=== PATIENT | female | born 1960 | race Caucasian/White ===

== ENCOUNTER 2016-10-26 19:09 | Emergency (ER) | payer OTHER ==
[2016-10-26 21:32] VITALS: BP 152/74
--- NOTE | 2016-10-26 21:42 | RAD ---
Indication: LEFT second toe pain following injury. Comparison: No relevant prior exams available on the [facility] [place] [facility] for comparison. Technique: 3 views LEFT second toe Report: Normal articular alignment. Negative for fracture. Small indolent appearing calcification within the soft tissues medial to the middle phalanx. Fusiform soft tissue swelling. IMPRESSION: Soft tissue swelling without fracture or malalignment.
--- NOTE | 2016-10-26 21:58 | UC ---
Lower Extremity/Ankle HPI - HPI Summary HPI Summary: LEFT 2ND TOE PAIN AND REDNESS. FELL DOWN STAIRS 4 DAYS AGO AND TRIPPED ON CAT 2 DAYS AGO. PAIN WITH TOE MOVEMENT. - History of Current Complaint Chief Complaint: UCLowerExtremity Stated Complaint: TOE COMPLAINT Time Seen by Provider: 10/26/16 20:53 Hx Obtained From: Patient Hx Last Menstrual Period: age 25yrs Onset/Duration: Sudden Onset, Lasting Days, Still Present Severity Initially: Moderate Severity Currently: Moderate Pain Intensity: 4 Pain Scale Used: 0-10 Numeric Aggravating Factor(s): Standing, Ambulation Alleviating Factor(s): Rest Able to Bear Weight: Yes - Allergies/Home Medications Allergies/Adverse Reactions: Allergies Allergy/AdvReac Type Severity Reaction Status Date / Time IVP dye Allergy Severe Dizziness Uncoded 10/26/16 19:36 PMH/Surg Hx/FS Hx/Imm Hx Endocrine History: Hypothyroidism, Dyslipidemia Cardiovascular History: Hypertension - Surgical History Surgical History: Yes Surgery Procedure, Year, and Place: cholecystectomy, hysterectomy, ,. STENT PLACEMENT FOR KIDNEY STONES - Family History Known Family History: Positive: Hypertension - Social History Alcohol Use: None Substance Use Type: None Smoking Status (MU): Never Smoked Tobacco Review of Systems Constitutional: Negative Skin: Other - REDNESS LEFT 2ND TOE Respiratory: Negative Cardiovascular: Negative Gastrointestinal: Negative Musculoskeletal: Arthralgia, Decreased ROM All Other Systems Reviewed And Are Negative: Yes Physical Exam Triage Information Reviewed: Yes Appearance: Well-Appearing, No Pain Distress, Well-Nourished Vital Signs: Initial Vital Signs Temp 99 F 10/26/16 19:32 Pulse 78 10/26/16 19:32 Resp 16 10/26/16 19:32 BP 158/89 10/26/16 19:32 Pulse Ox 100 10/26/16 19:32 Vital Signs Reviewed: Yes Eyes: Positive: Conjunctiva Clear ENT: Positive: Hearing grossly normal Neck: Positive: Supple Respiratory: Positive: No respiratory distress, No accessory muscle use Cardiovascular: Positive: Pulses Normal Abdomen Description: Positive: Soft Musculoskeletal: Positive: ROM Limited @ - TOES LEFT FOOT, Edema @ - MILD EDEMA LEFT 2ND TOE, Other: - TTP LEFT 2ND TOE Neurological: Positive: Alert Psychological: Positive: Age Appropriate Behavior Skin: Positive: Other - ERYTHEMA LEFT 2ND TOE. Negative: rashes Diagnostics - Radiology LEFT 2ND TOE XRAY Xray Interpretation: Positive (See Comments) - SOFT TISSUE SWELLING Radiology Interpretation Completed By: Radiologist Lower Extremity Course/Dx - Differential Dx/Diagnosis Provider Diagnoses: LEFT 2ND TOE SPRAIN Discharge - Discharge Plan Condition: Stable Disposition: HOME Patient Education Materials: Sprain (ED) Referrals: Sandhya Dumont MD [Primary Care Provider] - If Needed Additional Instructions: TOE XRAY NEGATIVE FOR FRACTURE TODAY. WEAR THE SHOE AND USE CRUTCHES NEEDED FOR MOBILITY. SEEK FOLLOW-UP IF YOU ARE NOT IMPROVING EXPECTED.
== END 2016-10-26 22:16 | disposition home or self-care (01) ==
LOC: UCEAST 19:09
DX: S93.505A Unspecified sprain of left lesser toe(s), initial encounter (principal); E03.9 Hypothyroidism, unspecified; E78.5 Hyperlipidemia, unspecified; W01.0XXA Fall on same level from slipping, tripping and stumbling without subsequent striking against object, initial encounter; Y92.9 Unspecified place or not applicable
CPT/HCPCS: 99213; G0463

== ENCOUNTER 2016-12-31 12:18 | Emergency (ER) | payer OTHER ==
[2016-12-31 12:26] VITALS: BP 164/96
[2016-12-31] MEDS: DOXYcycline CAP(*) 100 MG PO ONE (12:51)
--- NOTE | 2016-12-31 13:02 | UC ---
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 RECENTLY ACQUIRED CAT FROM [facility], CAT ESCAPED AND HID UNDER ANOTHER FAMILY'S TRAILER. TRIED TO OBTAIN CAT, BUT LEASH GOT WRAPPED AROUND LEFT WRIST. CAT BIT AND SCRATCHED LEFT HAND AND WRIST. TETANUS VACCINEUPDATE THREE MONTHS AGO - History of Current Complaint Chief Complaint: UCBiteInjury Stated Complaint: CAT BITE Time Seen by Provider: 12/31/16 12:23 Hx Obtained From: Patient Hx Last Menstrual Period: age 25yrs Onset/Duration: Sudden Onset, Lasting Minutes, Still Present Type of Bite: Pet Has Animal Been Immunized?: Yes Character: Puncture, Abrasion/Laceration Aggravating Factor(s): Nothing Alleviating Factor(s): Nothing Associated Signs And Symptoms: Positive: Drainage, Swelling. Negative: Fever, Erythema Hx of Bite: Provoked by: - SIGNAL PERSON Animal Available for Observation: Yes Animal Control Notified: Yes - Risk Factors Infection/Sepsis Risk Factors: Negative - Allergies/Home Medications Allergies/Adverse Reactions: Allergies Allergy/AdvReac Type Severity Reaction Status Date / Time IVP dye Allergy Severe Dizziness Uncoded 12/31/16 12:26 PMH/Surg Hx/FS Hx/Imm Hx Previously Healthy: Yes - Surgical History Surgical History: Yes Surgery Procedure, Year, and Place: cholecystectomy, hysterectomy, ,. STENT PLACEMENT FOR KIDNEY STONES - Family History Known Family History: Positive: Hypertension - Social History Occupation: Employed Full-time Lives: With Family Alcohol Use: None Substance Use Type: None Smoking Status (MU): Never Smoked Tobacco - Immunization History Most Recent Tetanus Shot: 2017 Review of Systems Constitutional: Negative Skin: Other - CAT BITES SCRATCHES LEFT HAND AND WRIST Eyes: Negative ENT: Negative Respiratory: Negative Cardiovascular: Negative Gastrointestinal: Negative Genitourinary: Negative Motor: Negative Neurovascular: Negative Musculoskeletal: Negative Neurological: Negative Psychological: Negative All Other Systems Reviewed And Are Negative: Yes Physical Exam Triage Information Reviewed: Yes Appearance: Well-Appearing, No Pain Distress, Well-Nourished Vital Signs: Initial Vital Signs Temp 98.6 F 12/31/16 12:19 Pulse 92 12/31/16 12:19 Resp 18 12/31/16 12:19 BP 164/96 12/31/16 12:19 Pulse Ox 96 12/31/16 12:19 Vital Signs Reviewed: Yes Eye Exam: Normal Eyes: Positive: Conjunctiva Clear ENT Exam: Normal ENT: Positive: Normal ENT inspection, Hearing grossly normal, TMs normal Dental Exam: Normal Neck exam: Normal Neck: Positive: Supple, Nontender, No Lymphadenopathy Respiratory Exam: Normal Respiratory: Positive: Chest non-tender, Lungs clear, Normal breath sounds, No respiratory distress, No accessory muscle use Cardiovascular Exam: Normal Cardiovascular: Positive: RRR, No Murmur, Pulses Normal, Brisk Capillary Refill Abdominal Exam: Normal Abdomen Description: Positive: Nontender, No Organomegaly Musculoskeletal Exam: Normal Musculoskeletal: Positive: Strength Intact, ROM Intact, No Edema Neurological Exam: Normal Psychological Exam: Normal Skin: Positive: Other - CAT BITES AND SCRATCHES LEFT HAND Bite Injury Course/Dx - Differential Dx/Diagnosis Differential Diagnosis/HQI/PQRI: Joint Space Infection, Laceration, Rabies Exposure, Superficial Infection, Deep Space Infection Provider Diagnoses: CAT BITES AND SCRATCHES LEFT HAND AND WRIST Discharge - Discharge Plan Condition: Stable Disposition: HOME Prescriptions: DOXYcycline CAP(*) [DOXYcycline 100MG CAP(*)] 100 mg PO BID #20 cap Patient Education Materials: Animal Bite (ED) Referrals: Sandhya Dumont MD [Primary Care Provider] -
== END 2016-12-31 13:26 | disposition home or self-care (01) ==
LOC: UCEAST 12:18
DX: S60.572A Other superficial bite of hand of left hand, initial encounter (principal); W55.01XA Bitten by cat, initial encounter
CPT/HCPCS: 99213; A9270-GY; G0463

== ENCOUNTER 2017-03-12 18:43 | Emergency (ER) | payer OTHER ==
[2017-03-12 19:15] VITALS: BP 152/82
--- NOTE | 2017-03-12 19:39 | UC ---
Eye Complaint HPI - HPI Summary HPI Summary: Left eye irritation began today granddaughter with similar sx - History of Current Complaint Chief Complaint: UCEye Stated Complaint: EYE IRRITATION Time Seen by Provider: 03/12/17 19:37 Hx Obtained From: Patient Hx Last Menstrual Period: age 25yrs ?: No Onset/Duration: Sudden Onset Timing: Constant Severity Initially: Mild Severity Currently: Mild Location of Injury: Conjunctiva Aggravating Factor(s): Nothing Alleviating Factor(s): Nothing Associated Signs And Symptoms: Positive: Drainage (Purulent) - Allergies/Home Medications Allergies/Adverse Reactions: Allergies Allergy/AdvReac Type Severity Reaction Status Date / Time IVP dye Allergy Severe Dizziness Uncoded 03/12/17 19:15 PMH/Surg Hx/FS Hx/Imm Hx Endocrine History: Hypothyroidism, Dyslipidemia Cardiovascular History: Hypertension GI/ History: Gastroesophageal Reflux - Surgical History Surgical History: Yes Surgery Procedure, Year, and Place: cholecystectomy, hysterectomy, ,. STENT PLACEMENT FOR KIDNEY STONES - Family History Known Family History: Positive: Hypertension - Social History Occupation: Disabled Lives: With Family Alcohol Use: None Substance Use Type: None Smoking Status (MU): Never Smoked Tobacco - Immunization History Most Recent Tetanus Shot: 2017 Review of Systems Constitutional: Negative Skin: Negative Eyes: Drainage, Eye Redness ENT: Negative Respiratory: Negative Cardiovascular: Negative Gastrointestinal: Negative Genitourinary: Negative Motor: Negative Neurovascular: Negative Musculoskeletal: Negative Neurological: Negative Psychological: Negative Is Patient Immunocompromised?: No All Other Systems Reviewed And Are Negative: Yes Physical Exam Triage Information Reviewed: Yes Appearance: Well-Appearing, No Pain Distress, Obese Vital Signs: Initial Vital Signs Temp 97.7 F 03/12/17 19:13 Pulse 85 03/12/17 19:13 Resp 16 03/12/17 19:13 BP 152/82 03/12/17 19:13 Pulse Ox 99 03/12/17 19:13 Vital Signs Reviewed: Yes Eye Exam: Normal Eyes: Positive: Conjunctiva Clear - right, Conjunctiva Inflamed - left, Discharge - left ENT Exam: Normal ENT: Positive: Normal ENT inspection, Hearing grossly normal, TMs normal, Uvula midline. Negative: Nasal congestion, Nasal drainage, Trismus, Muffled voice, Hoarse voice, Dental tenderness, Sinus tenderness Dental Exam: Normal Neck exam: Normal Neck: Positive: Supple, Nontender, No Lymphadenopathy Respiratory Exam: Normal Respiratory: Positive: Chest non-tender, Lungs clear, Normal breath sounds, No respiratory distress, No accessory muscle use Cardiovascular Exam: Normal Cardiovascular: Positive: RRR, No Murmur, Pulses Normal Musculoskeletal Exam: Normal Musculoskeletal: Positive: Strength Intact, ROM Intact, No Edema Neurological Exam: Normal Neurological: Positive: Alert, Muscle Tone Normal Psychological Exam: Normal Skin Exam: Normal Eye Complaint Course/Dx - Course Course Of Treatment: warm compress, polytrim eye drops, hand hygiene follow with pcp - Differential Dx/Diagnosis Provider Diagnoses: High blood pressure in poor control, os conjuctivitis Discharge - Discharge Plan Condition: Stable Disposition: HOME Patient Education Materials: Hypertension (ED), Conjunctivitis (ED) Referrals: Sandhya Dumont MD [Primary Care Provider] - 2 Weeks
[2017-03-12] MEDS ORDERED: Polymyx/Trimethoprim OPTH* 10 ML BTL LEFT EYE ONE (19:54)
== END 2017-03-12 20:26 | disposition home or self-care (01) ==
LOC: UCEAST 18:43
DX: H10.32 Unspecified acute conjunctivitis, left eye (principal); I10 Essential (primary) hypertension; E03.9 Hypothyroidism, unspecified; E78.5 Hyperlipidemia, unspecified; K21.9 Gastro-esophageal reflux disease without esophagitis; E66.9 Obesity, unspecified; Z90.49 Acquired absence of other specified parts of digestive tract; Z90.710 Acquired absence of both cervix and uterus; Z91.041 Radiographic dye allergy status
CPT/HCPCS: 99212; G0463

== ENCOUNTER 2017-04-27 12:23 | Emergency (ER) | payer OTHER ==
[2017-04-27 12:42] VITALS: BP 174/93
[2017-04-27] MEDS ORDERED: Ketorolac INJ* 15 MG/ML 1 ML VIAL IV PUSH ONE (13:11)
[2017-04-27] MEDS ORDERED: NS 0.9% 1000 ML* 1,000 ML IV ONE (13:11)
[2017-04-27] MEDS ORDERED: Ketorolac INJ* 30 MG/ML 1 ML VIAL IV PUSH ONE (13:14)
--- NOTE | 2017-04-27 13:36 | UC ---
Abdominal Pain Female HPI - HPI Summary HPI Summary: Patient presents with a past medical history of HTN, Gerd, Hypercholesterolemia , hypothyroidism, and Kidney stones. She presents today with 2 day onset right flank pain that radiates to the right side of the abdomen. She states the pain became severe today. He cannot sit down or stop pacing due to the pain. She reports associated nausea and vomiting. She reports episodes of sweating. - History of Current Complaint Chief Complaint: UCBackPain Stated Complaint: LOWER BACK PAIN Time Seen by Provider: 04/27/17 13:08 Hx Obtained From: Patient Hx Last Menstrual Period: age 25yrs ?: No Onset/Duration: Sudden Onset, Lasting Days Timing: Constant Severity Currently: Severe Location: Discrete At: RLQ, Other - right CVA Radiates: Yes Radiates to: Flank Character: Sharp Aggravating Factor(s): Nothing Alleviating Factor(s): Nothing Associated Signs and Symptoms: Positive: Diaphoresis, Decreased Appetite, Nausea , Vomiting - Risk Factors Ectopic Risk Factor: Negative Allergies/Adverse Reactions: Allergies Allergy/AdvReac Type Severity Reaction Status Date / Time IVP dye Allergy Severe Dizziness Uncoded 04/27/17 12:41 PMH/Surg Hx/FS Hx/Imm Hx Previously Healthy: Yes Endocrine History: Hypothyroidism, Dyslipidemia Cardiovascular History: Hypertension GI/ History: Gastroesophageal Reflux - Surgical History Surgical History: Yes Surgery Procedure, Year, and Place: cholecystectomy, hysterectomy, ,. STENT PLACEMENT FOR KIDNEY STONES - Family History Known Family History: Positive: Hypertension - Social History Lives: Alone Alcohol Use: Rare Substance Use Type: None Smoking Status (MU): Never Smoked Tobacco - Immunization History Most Recent Tetanus Shot: 2017 Review of Systems Constitutional: Negative Skin: Negative Eyes: Negative ENT: Negative Respiratory: Negative Cardiovascular: Negative Gastrointestinal: Abdominal Pain Genitourinary: Negative Motor: Negative Neurovascular: Negative Musculoskeletal: Negative Neurological: Negative Psychological: Negative Is Patient Immunocompromised?: No All Other Systems Reviewed And Are Negative: Yes Physical Exam Triage Information Reviewed: Yes Appearance: Ill-Appearing, Pain Distress Vital Signs: Initial Vital Signs Temp 97.3 F 04/27/17 12:35 Pulse 88 04/27/17 12:35 Resp 17 04/27/17 12:35 BP 174/93 04/27/17 12:35 Pulse Ox 100 04/27/17 12:35 Vital Signs Reviewed: Yes Eye Exam: Normal ENT Exam: Normal Neck exam: Normal Neck: Positive: 1 Respiratory Exam: Normal Respiratory: Positive: Normal breath sounds, No respiratory distress, No accessory muscle use Cardiovascular Exam: Normal Abdomen Description: Positive: CVA Tenderness (R), Guarding Musculoskeletal Exam: Normal Neurological Exam: Normal Psychological Exam: Normal Skin Exam: Normal Abd Pain Female Course/Dx - Course Course Of Treatment: Patient presents with two day onset complaints of right sided flank pain, with history of kidney stones. She presents with severe pain, and symtpoms consistent with previous kidney stones. She had right sided CVAT, and an IV line was started and she was given tordol and [facility] was called and the patient was transported to the ED.Report was called and given to Dr. Palmer. Patient discharged via ambualnce in stable condition. - Differential Dx/Diagnosis Differential Diagnosis: Other - right flank pain Provider Diagnoses: right flank pain Discharge - Discharge Plan Condition: Stable Disposition: TRANS HIGHER LVL OF CARE FAC Patient Education Materials: Flank Pain (ED) Referrals: Sandhya Dumont MD [Primary Care Provider] -
== END 2017-04-27 13:34 | disposition short-term general hospital (02) ==
LOC: UCEAST 12:23
DX: R10.31 Right lower quadrant pain (principal); R11.2 Nausea with vomiting, unspecified; I10 Essential (primary) hypertension; Z87.442 Personal history of urinary calculi; Z91.041 Radiographic dye allergy status
CPT/HCPCS: 96361; 96374; 99213; G0463; J1885

== ENCOUNTER 2017-04-27 13:53 | Emergency (ER) | payer OTHER ==
[2017-04-27] MEDS ORDERED: Ondansetron INJ* 2 MG/ML VIAL IV ONE (14:07)
--- NOTE | 2017-04-27 15:01 | RAD ---
INDICATION: Right flank pain history of stones. COMPARISON: Comparison is made with a prior CT of the abdomen and pelvis from November 09, 2007. TECHNIQUE: A CT scan of the abdomen and pelvis was performed without intravenous or oral contrast. Contiguous axial sections were obtained from the lung bases through the symphysis pubis. Images were reconstructed in the coronal and sagittal planes. FINDINGS: There is a small infiltrate present posterior at the right lung base. No pleural effusion is present. The liver and spleen are normal in size. The liver is decreased in attenuation consistent with fatty infiltration. No significant focal abnormality seen on this noncontrast study. The patient is status post cholecystectomy. The pancreas appears to be within normal limits. There are multiple bilateral renal calculi measuring between 1 and 6 mm in size. There is mild enlargement of the right kidney and mild perinephric stranding on the right side. There is dilatation of the right renal calyces, pelvis and ureter to the level of a calculus at the ureterovesical junction measuring 4.5 mm in size. This is causing moderate hydronephrosis. The aorta is normal in caliber without significant calcific plaque. No significant enlarged retroperitoneal lymph nodes are seen. The stomach, small and large bowel appear nondistended. The appendix is within normal limits. There is moderate sigmoid diverticulosis without evidence for diverticulitis or colitis. The patient is status post hysterectomy. No free intraperitoneal air or fluid is seen. No significant focal osseous abnormality is seen. IMPRESSION: 1. THERE IS A 4.5 MM CALCULUS AT THE RIGHT URETEROVESICAL JUNCTION CAUSING MODERATE HYDRONEPHROSIS. 2. THERE ARE MULTIPLE SMALL ADDITIONAL BILATERAL RENAL CALCULI. 3. HEPATIC STEATOSIS. 4. STATUS POST CHOLECYSTECTOMY AND HYSTERECTOMY.
[2017-04-27 15:14] LABS: ABS Basophils 0.1 10^3/ul (0-0.2); ABS Eosinophils 0 10^3/ul (0-0.6); ABS Lymphocytes 1.2 10^3/ul (1.0-4.8); ABS Monocytes 0.3 10^3/ul (0-0.8); ABS Nucleated RBC 0 10^3/ul; Eosinophil % 0.1 % (0-6); Hematocrit 38 % (35-47); Lymphocyte % 11.2 % (25-47); Mean Corpuscular HGB Conc 34 g/dl (31-36); Mean Corpuscular Hemoglobin 30 pg (27-31); Mean Corpuscular Volume 89 fL (80-97); Mean Platelet Volume 7 um3 (7.4-10.4); Nucleated Red Blood Cells % 0; Platelet Count 148 10^3/ul (150-450); Red Cell Distribution Width 13 % (10.5-15); White Blood Count 10.6 10^3/ul (3.5-10.8)
[2017-04-27 15:28] LABS: EGFR Non-African American 62.1 (>60)
[2017-04-27] MEDS ORDERED: Tamsulosin CAP* 0.4 MG PO ONE (15:30)
[2017-04-27] MEDS ORDERED: Ketorolac INJ* 30 MG/ML 1 ML VIAL IV PUSH ONE (15:34)
[2017-04-27 15:58] VITALS: BP 125/62
--- NOTE | 2017-04-27 21:34 | ED ---
Roly Atkinson Gabriel, scribed for Mikael Rodriguez MD on 04/27/17 at 1405 . Back Pain - HPI Summary HPI Summary: This patient is a 57 year old F presenting to [facility] after being seen at with a chief complaint of possible kidney stone since 04/25/17. Symptoms alleviated by pacing. Patient was given toradol at which has alleviated her pain. Patient reports nausea, vomiting, back and flank pain. Patient denies hematuria , dysuria, fever, and ABD pain. Pt has a history of kidney stones and states the symptoms feel similar to previous ones. The pain has gotten severe today. She states she has no history of poor kidney function. - History of Current Complaint Stated Complaint: RIGHT FLANK PAIN FROM CC Time Seen by Provider: 04/27/17 14:04 Hx Obtained From: Patient Hx Last Menstrual Period: age 25yrs Onset/Duration: Sudden Onset, Lasting Days - 2, Still Present Onset/Duration: Still Present Timing: Constant Back Pain Location: Is Diffuse - into flank Severity Initially: Moderate Severity Currently: Mild Character: Sharp Alleviating Symptom(s): Other - pacing, medication Associated Signs And Symptoms: Positive: Negative - hematuria, dysuria, fever, and ABD pain, Flank Pain, Other - nausea, vomiting, back and flank pain. Negative: Abdominal Pain - Allergies/Home Medications Allergies/Adverse Reactions: Allergies Allergy/AdvReac Type Severity Reaction Status Date / Time IVP dye Allergy Severe Dizziness Uncoded 04/27/17 12:41 PMH/Surg Hx/FS Hx/Imm Hx Endocrine/Hematology History: Reports: Hx Thyroid Disease Cardiovascular History: Reports: Hx Hypercholesterolemia, Hx Hypertension Respiratory History: Denies: Hx Asthma, Hx Chronic Obstructive Pulmonary Disease (COPD) GI History: Reports: Hx Gastroesophageal Reflux Disease Denies: Hx Ulcer History: Reports: Hx Kidney Stones - since 18 y/o - Surgical History Surgery Procedure, Year, and Place: cholecystectomy, hysterectomy, ,. STENT PLACEMENT FOR KIDNEY STONES Infectious Disease History: Denies: Hx Clostridium Difficile, Hx Hepatitis, Hx Human Immunodeficiency Virus (HIV), Hx of Known/Suspected MRSA, Hx Shingles, Hx Tuberculosis, Hx Known/ Suspected VRE, Hx Known/Suspected VRSA, History Other Infectious Disease - Family History Known Family History: Positive: Hypertension - Social History Alcohol Use: Rare Hx Substance Use: No Substance Use Type: Reports: None Hx Tobacco Use: No Smoking Status (MU): Never Smoked Tobacco Review of Systems Negative: Fever Positive: Vomiting, Nausea. Negative: Abdominal Pain Negative: dysuria, hematuria Positive: Other - back and flank pain All Other Systems Reviewed And Are Negative: Yes Physical Exam - Summary Physical Exam Summary: Appearance: Obese, no pain distress Skin: warm, dry, reflects adequate perfusion Head/face: normal Eyes: EOMI, SHABNAM ENT: normal Neck: supple, non-tender Respiratory: CTA, breath sounds present Cardiovascular: RRR, pulses symmetrical Abdomen: non-tender, soft Bowel: present Musculoskeletal: normal, strength/ROM intact Neuro: normal, sensory motor intact, A&Ox3 Triage Information Reviewed: Yes Vital Signs On Initial Exam: Initial Vitals BP 108/59 04/27/17 14:16 Completion Of Physical Exam Limited Due To: Dementia Diagnostics - Vital Signs Vital Signs Temp Pulse Resp BP Pulse Ox 04/27/17 15:58 36.6 C 108 18 125/62 99 04/27/17 15:44 83 125/62 99 04/27/17 15:30 84 123/62 99 04/27/17 15:00 79 120/66 99 04/27/17 14:56 137/63 04/27/17 14:41 78 97 04/27/17 14:30 76 108/64 95 04/27/17 14:17 81 99 04/27/17 14:16 108/59 - Laboratory Lab Results: Lab Results 04/27/17 04/27/17 Range/Units 15:04 15:04 WBC 10.6 (3.5-10.8) 10^3/ul RBC 4.30 (4.0-5.4) 10^6/ul Hgb 13.0 (12.0-16.0) g/dl Hct 38 (35-47) % MCV 89 (80-97) fL MCH 30 (27-31) pg MCHC 34 (31-36) g/dl RDW 13 (10.5-15) % Plt Count 148 L (150-450) 10^3/ul MPV 7 L (7.4-10.4) um3 Neut % (Auto) 85.0 H (38-83) % Lymph % (Auto) 11.2 L (25-47) % [place] % (Auto) 3.1 (1-9) % Eos % (Auto) 0.1 (0-6) % Baso % (Auto) 0.6 (0-2) % Absolute Neuts (auto) 9.0 H (1.5-7.7) 10^3/ul Absolute Lymphs (auto) 1.2 (1.0-4.8) 10^3/ul Absolute Monos (auto) 0.3 (0-0.8) 10^3/ul Absolute Eos (auto) 0 (0-0.6) 10^3/ul Absolute Basos (auto) 0.1 (0-0.2) 10^3/ul Absolute Nucleated RBC 0 10^3/ul Nucleated RBC % 0 Sodium 138 (133-145) mmol/L Potassium 3.8 (3.5-5.0) mmol/L Chloride 105 (101-111) mmol/L Carbon Dioxide 25 (22-32) mmol/L Anion Gap 8 (2-11) mmol/L BUN 18 (6-24) mg/dL Creatinine 0.93 (0.51-0.95) mg/dL Est GFR ( Amer) 79.9 (>60) Est GFR (Non-Af Amer) 62.1 (>60) BUN/Creatinine Ratio 19.4 (8-20) Glucose 115 H (70-100) mg/dL Calcium 9.5 (8.6-10.3) mg/dL Result Diagrams: 04/27/17 15:04 04/27/17 15:04 Lab Statement: Any lab studies that have been ordered have been reviewed, and results considered in the medical decision making process. - CT CT ABD/Pelvis CT Interpretation Completed By: Radiologist - 1. THERE IS A 4.5 MM CALCULUS AT THE RIGHT URETEROVESICAL JUNCTION CAUSING MODERATE HYDRONEPHROSIS. 2. THERE ARE MULTIPLE SMALL ADDITIONAL BILATERAL RENAL CALCULI. 3. HEPATIC STEATOSIS. 4. STATUS POST CHOLECYSTECTOMY AND HYSTERECTOMY. ED physician has reviewed this radiology report. Re-Evaluation - Re-Evaluation First Eval Change: Improved Back Pain Course/Dx - Course Course Of Treatment: pt with hx of mult stones. >5mm distal stone. Start flomax. Tx here with relief. To f/u with urology. NSAID plus flomax. D/C in good condition. - Diagnoses Provider Diagnoses: Renal colic on right side, Calcium ureterolithiasis Discharge - Discharge Plan Condition: Improved Disposition: HOME Prescriptions: Naproxen [Naproxen 500 mg] 500 mg PO BID PRN #10 tab PRN Reason: Pain Ondansetron [Zofran Odt] 4 mg PO TID PRN #10 tab PRN Reason: Nausea Tamsulosin CAP* [Flomax CAP*] 0.4 mg PO DAILY #7 cap Referrals: Sandhya Dumont MD [Primary Care Provider] - Lawson Posey MD [Medical Doctor] - Additional Instructions: Drink lots of fluids. Adhere strictly to the CALCIUM OXYLATE diet. Return with uncontrolled pain, vomiting, fever, worse or other concerns as discussed. The documentation as recorded by the Roly yepez Gabriel accurately reflects the service I personally performed and the decisions made by , Mikael Rodriguez MD.
== END 2017-04-27 15:58 | disposition home or self-care (01) ==
LOC: ED 13:53
DX: N13.2 Hydronephrosis with renal and ureteral calculous obstruction (principal); N28.89 Other specified disorders of kidney and ureter; Z91.041 Radiographic dye allergy status; Z90.49 Acquired absence of other specified parts of digestive tract
CPT/HCPCS: 36415; 74176; 80048; 85025; 96374; 96375; 99283; J1885

== ENCOUNTER 2017-06-13 11:17 | Emergency (ER) | payer OTHER ==
[2017-06-13 12:36] VITALS: BP 146/80
--- NOTE | 2017-06-13 12:51 | UC ---
FLU HPI - HPI Summary HPI Summary: Pt presents with sore throat and fever for 4 days. Starting yesterday she developed a dry cough. She vomited once yesterday. She tells me that she has been exposed to the flu. Denies SOB, chest pain, abdominal pain, diarrhea. - History of Current Complaint Chief Complaint: UCRespiratory Stated Complaint: SORE THROAT,BODYACHES Time Seen by Provider: 06/13/17 12:50 Hx Obtained From: Patient Hx Last Menstrual Period: hysterectomy Pain Intensity: 0 - Allergy/Home Medications Allergies/Adverse Reactions: Allergies Allergy/AdvReac Type Severity Reaction Status Date / Time IVP dye Allergy Severe Dizziness Uncoded 04/27/17 12:41 PMH/Surg Hx/FS Hx/Imm Hx Endocrine History: Thyroid Disease, Dyslipidemia Cardiovascular History: Hypertension - Surgical History Surgical History: None Surgery Procedure, Year, and Place: cholecystectomy, hysterectomy, ,. STENT PLACEMENT FOR KIDNEY STONES - Family History Known Family History: Positive: Hypertension - Social History Occupation: Employed Full-time Lives: With Family Alcohol Use: Rare Substance Use Type: None Smoking Status (MU): Never Smoked Tobacco - Immunization History Most Recent Tetanus Shot: 2017 Review of Systems Constitutional: Fever, Fatigue, Other - Body aches Skin: Negative Eyes: Negative ENT: Sore Throat Respiratory: Cough Cardiovascular: Negative Gastrointestinal: Nausea Musculoskeletal: Negative Neurological: Negative Psychological: Negative All Other Systems Reviewed And Are Negative: Yes Physical Exam Triage Information Reviewed: Yes Appearance: No Pain Distress, Well-Nourished, Ill-Appearing Vital Signs: Initial Vital Signs Temp 98.9 F 06/13/17 12:30 Pulse 97 06/13/17 12:30 Resp 18 06/13/17 12:30 BP 146/80 06/13/17 12:30 Pulse Ox 97 06/13/17 12:30 Vital Signs Reviewed: Yes Eyes: Positive: Conjunctiva Clear. Negative: Conjunctiva Inflamed, Discharge ENT: Positive: Hearing grossly normal, Pharynx normal, TMs normal, Uvula midline. Negative: Pharyngeal erythema, Nasal congestion, Nasal drainage, TM bulging, TM dull, TM red, Tonsillar swelling, Tonsillar exudate, Hoarse voice, Sinus tenderness Neck: Positive: Supple, Nontender, No Lymphadenopathy Respiratory: Positive: Lungs clear, Normal breath sounds, No respiratory distress, No accessory muscle use Cardiovascular: Positive: RRR, No Murmur, Pulses Normal Abdomen Description: Positive: Nontender, No Organomegaly, Soft. Negative: CVA Tenderness (R), CVA Tenderness (L), Distended, Guarding, McBurney's Point Tenderness Bowel Sounds: Positive: Present Neurological: Positive: Fatigued Psychological: Positive: Age Appropriate Behavior Skin: Negative: rashes Flu Course/Dx - Course Course Of Treatment: POC flu B positive - Differential Dx/Diagnosis Provider Diagnoses: Influenza B Discharge - Discharge Plan Condition: Stable Disposition: HOME Prescriptions: Benzonatate CAP* [Tessalon 100 MG CAP*] 100 mg PO TID PRN #15 cap PRN Reason: Cough Ibuprofen TAB* [Motrin TAB* 400 MG] 400 mg PO Q6H PRN #20 tab PRN Reason: Pain Ondansetron ODT TAB* [Zofran 4 MG Odt TAB*] 4 mg PO Q8H PRN #10 tab.odt PRN Reason: Nausea Oseltamivir CAP* [Tamiflu CAP*] 75 mg PO BID #10 cap Patient Education Materials: Influenza (ED) Referrals: Sandhya Dumont MD [Primary Care Provider] - Additional Instructions: If you develop a fever, shortness of breath, chest pain, new or worsening symptoms - please call your PCP or go to the ED. Your blood pressure was high at todays visit. Please see your primary provider within 4 weeks for recheck and re-evaluation.
[2017-06-13] MEDS ORDERED: Ondansetron ODT TAB* 4 MG PO ONE (13:34)
== END 2017-06-13 13:42 | disposition home or self-care (01) ==
LOC: UCEAST 11:17
DX: J10.1 Influenza due to other identified influenza virus with other respiratory manifestations (principal); E07.9 Disorder of thyroid, unspecified; E78.5 Hyperlipidemia, unspecified; I10 Essential (primary) hypertension; Z91.041 Radiographic dye allergy status
CPT/HCPCS: 87502; 99212; A9270-GY; G0463

== ENCOUNTER 2017-11-08 19:45 | Emergency (ER) | payer OTHER ==
[2017-11-08 20:14] VITALS: BP 147/83
--- NOTE | 2017-11-08 20:45 | UC ---
UC General HPI - History of Current Complaint Chief Complaint: UCRespiratory Stated Complaint: SORE THROAT Time Seen by Provider: 11/08/17 20:32 Hx Last Menstrual Period: hysterectomy Onset/Duration: Lasting Days Timing: Intermittent Episodes Lasting: - few hours Onset Severity: Mild Current Severity: None Pain Intensity: 3 - Allergy/Home Medications Allergies/Adverse Reactions: Allergies Allergy/AdvReac Type Severity Reaction Status Date / Time IVP dye Allergy Severe Dizziness Uncoded 11/08/17 20:14 Home Medications: Home Medications Fluticasone NASAL SPRAY 50MCG* [Flonase NASAL SPRAY 50MCG*] 1 spray DAILY PRN [History Confirmed 11/08/17] Metoprolol Tartrate TAB* [Lopressor TAB*] 200 mg BEDTIME 11/08/17 [History Confirmed 11/08/17] Omeprazole CAP* [Prilosec CAP* 20 MG] 1 tab DAILY 11/08/17 [History Confirmed ] PMH/Surg Hx/FS Hx/Imm Hx Previously Healthy: Yes Endocrine History: Thyroid Disease Cardiovascular History: Hypertension GI/ History: Kidney Stones - Surgical History Surgical History: Yes Surgery Procedure, Year, and Place: cholecystectomy, hysterectomy, ,. STENT PLACEMENT FOR KIDNEY STONES - Family History Known Family History: Positive: Hypertension - Social History Alcohol Use: Occasionally Substance Use Type: None Smoking Status (MU): Never Smoked Tobacco - Immunization History Most Recent Tetanus Shot: 2017 Review of Systems Constitutional: Negative Skin: Negative Eyes: Negative ENT: Negative Respiratory: Negative Cardiovascular: Negative Gastrointestinal: Negative Genitourinary: Negative Motor: Negative Neurovascular: Negative Musculoskeletal: Negative Neurological: Negative Psychological: Negative All Other Systems Reviewed And Are Negative: Yes Physical Exam Triage Information Reviewed: Yes Appearance: Well-Appearing Vital Signs: Initial Vital Signs Temp 37.1 C 11/08/17 20:11 Pulse 75 11/08/17 20:11 Resp 16 11/08/17 20:11 BP 147/83 11/08/17 20:11 Pulse Ox 100 11/08/17 20:11 Vital Signs Reviewed: Yes Eye Exam: Normal Eyes: Positive: Conjunctiva Clear ENT Exam: Normal ENT: Positive: Normal ENT inspection, Pharynx normal Dental Exam: Normal Neck exam: Normal Neck: Positive: Supple, No Lymphadenopathy Respiratory: Positive: Chest non-tender Cardiovascular Exam: Normal Cardiovascular: Positive: RRR Abdominal Exam: Normal Musculoskeletal Exam: Normal Course/Dx - Course Course Of Treatment: exam normal - Differential Dx - Multi-Symptom Provider Diagnoses: tonsilith now resolved Discharge - Sign-Out/Discharge Documenting (check all that apply): Patient Departure - Discharge Plan Condition: Good Disposition: HOME Referrals: Sandhya Dumont MD [Primary Care Provider] - - Billing Disposition and Condition Condition: GOOD Disposition: Home
== END 2017-11-08 21:00 | disposition home or self-care (01) ==
LOC: UCCORT 19:45
DX: J35.8 Other chronic diseases of tonsils and adenoids (principal); E07.9 Disorder of thyroid, unspecified; I10 Essential (primary) hypertension; Z87.442 Personal history of urinary calculi; Z91.041 Radiographic dye allergy status; Z82.49 Family history of ischemic heart disease and other diseases of the circulatory system
CPT/HCPCS: 99211; G0463

== ENCOUNTER 2017-12-29 20:13 | Emergency (ER) | payer OTHER ==
--- OUTSIDE RECORDS SUMMARY | 2017-12-29 20:21 | XMS REPORT ---
:1960 External Reference #:[id number] Author Organization [facility] Address [address] [place] [address] Phone [phone] Care Team Providers Name Role Phone Sandhya Dumont M.D. Care Team Information Street Openings Inspector Unavailable Sandhya Dumont M.D. Primary Care Physician Unavailable Payers Type Date Identification Numbers Payment Provider Subscriber Medicaid Effective: Policy Number: [id number] [facility] 2014 PayID: [id number] [address] [address] [place] [address] Problems Date Description Provider Status Onset: 04/02/2014 Hypothyroidism Sandhya Dumont M.D. Active Onset: 04/02/2014 Hyperlipidemia Sandhya Dumont M.D. Active Onset: 04/02/2014 Benign essential hypertension Sandhya Dumont M.D. Active Onset: 04/02/2014 Gastroesophageal reflux disease Sandhya Dumont M.D. Active Onset: 04/02/2014 Asthma without status asthmaticus Sandhya Dumont M.D. Active Onset: 03/25/2015 Impaired fasting glycaemia Sandhya Dumont M.D. Active Onset: 03/25/2015 Kidney stone Sandhya Dumont M.D. Active Family History Date Family Member(s) Problem(s) Comments Father due to Surgery () Mother Diabetes Mellitus, II Mother due to Congestive Heart Failure () - 81 Mother Hypertension First Son due to Asthma () Social History Type Date Description Comments Cigarette Use Never Smoked Cigarettes ETOH Use Rare Smoking Patient has never smoked Allergies, Adverse Reactions, Alerts Date Description Reaction Status Severity Comments 04/02/2014 IVP Dye Nausea and Vomiting active Severe 05/02/2017 Tamsulosin DIZZY, SOB active 05/14/2014 NKDA inactive Medications Medication Date Status Form Strength Qnty SIG Indications Ordering Provider Cyclobenzaprine 12/27 Active Tablets 5mg 45tab 1-2 by M54.2 Holly Capellan HCL s mouth 3 Cash, times per HOUSING DEVELOPMENT SPECIALIST day as needed for muscle spasm Physical Therapy 12/27 Active please M54.2 Holly C. /2017 diagnose Cash, and treat HOUSING DEVELOPMENT SPECIALIST for neck and upper back pain Claritin 10/05 Active Tablets 10mg 90tab 1 by J30.9 Lorraine s mouth Liv, every day [employer] Metoprolol 06/30 Active Tablets ER 200mg 90tab 1 by J06.9 Mouna Elizabeth Succinate ER /2017 24HR s mouth Beto, HOUSING DEVELOPMENT SPECIALIST daily Hydrocortisone 06/30 Active Cream 1% 28.40 apply Lorraine Plus 0gm sparingly Liv, to [employer] affected areas of skin Freestyle Lite 10/01 Active Device 1unit test 3 Lorraine Blood Glucose s times a Liv, Monitoring day or as [employer] System directed dx:r73.09 Freestyle Lite 10/01 Active Strips 100un test 3 Lorraine Test /2015 its times a Liv, day or as [employer] directed dx:r73.09 Freestyle 10/01 Active Misc 100un test 3 Lorraine Lancets /2015 its times a Liv, day or as [employer] directed dx:r73.09 Aerochamber Plus 11/06 Active Misc 1unit Use with s inhaler ALINA Rock Ventolin HFA 04/02 Active Aerosol 108(90Bas 1mdi 2 puffs J45.909 Sandhya e) every 4 [place], mcg/Act hours as M.D. needed Simvastatin 04/02 Active Tablets 20mg 30tab take one Lynda s tablet by Jamee, mouth [employer] every day Omeprazole 04/[address] 20mg 30cap Take One K21.9 Gianni A. s Capsule Darlow, By Mouth M.D. Every Day Levothyroxine 04/02 Active Tablets 75mcg 30tab Take One Mouna Elizabeth Sodium s Tablet By Beto HOUSING DEVELOPMENT SPECIALIST Mouth Every Day Fluticasone 10/05 Hx Suspension 50mcg/Act 1bott 1 sprays H68.001 Lorraine Propionate /2017 le each Liv, - nostril [employer] 12/27 daily Saline Nasal 10/05 Hx Solution 0.65% 44ml 1-2 H68.001 Lorraine [place] /2017 sprays Liv, - twice [employer] 12/27 daily each nostril Aquaphor 06/30 Hx Ointment 50gm apply to Lorraine affected Liv, - excoriate [employer] 12/27 d skin 2-4 times daily to provide a barrier, moisture Benzonatate 06/20 Hx Capsules 100mg 30cap 1 tab q6 s hours as , - needed M.D. 06/30 cough Loperamide HCL 08/31 Hx Capsules 2mg 30cap 2 tabs at R19.7 s onset of [place], - diarrhea M.D. 01/11 and repeat after each loose stool Max 8 tabs daily Sertraline HCL 01/12 Hx Tablets 25mg 30tab 1 by F43.0 Lorraine s mouth Liv, - every day [employer] 03/08 Andry Contour 09/21 Hx 100un test 3 Lorraine Next Ez Blood its times a Liv, Glucose Test - week or [employer] Strips 10/01 directed r73.09 Andry Contour 09/21 Hx 100un test 3 Lorraine Next Ez Lancets its times a Liv, - day or as [employer] 10/01 directed dx:r73.09 Hydrocodone-Acet 07/09 Hx Tablets 5-325mg 30tab 1-2 by Lorraine aminophen s mouth Liv, - every [employer] 01/12 q6hr needed pain Hydrocodone-Acet 08/12 Hx Tablets 5-325mg 30tab 1-2 by Lauren aminophen s mouth [place], - every Afnp-C 07/09 q6hr needed pain Naproxen 08/06 Hx Tablets 500mg 40tab 1 po bid 719.46 s prn pain Liv, - [employer] 07/09 Physical Therapy 08/06 Hx please 719.46 eval/ramez Peck, - t right [employer] 10/06 knee, quad tendon pain Meloxicam 07/25 Hx Tablets 15mg 30tab 1 by 719.46 Jamal Goodrich, /2014 s mouth M.D. - every day 10/06 Naproxen 07/03 Hx Tablets 500mg 60tab 1 by 729.5 Alexandra s mouth Pranav, HOUSING DEVELOPMENT SPECIALIST - twice a 07/25 day with food Mometasone 05/14 Hx Ointment 0.1% 30g 1 apply 692.9 Sandhya Furoate /2014 to [place], - affected M.D. 07/09 twice a day for up to 7 days Cephalexin 04/02 Hx Capsules 500mg 1 by mouth qid Medicine - x10 days Associates 05/14 Of Metoprolol 04/02 Hx Tablets ER 100mg 30tab take one J06.9 Lynda Succinate ER /2013 24HR s tablet by Jaeme, - mouth [employer] 06/30 every Naproxen Hx Tablets 500mg 60tab 1 by Alber Manley /0000 s mouth Melita, - twice a MD 12/27 day with food Immunizations CPT Code Status Date Vaccine Lot # [id number] Given 08/03/2016 Tetanus And Diptheria Adult Preservative Free [id number] >[id number] Given 03/09/2016 Influenza Vac, Quadrivalent, Slit Virus, Im [id number] Given 02/27/2015 Influenza Vac, Quadrivalent, Slit Virus, Im [id number] Vital Signs Date Vital Result Comment 12/27/2017 BP Systolic 150 mmHg BP Diastolic 78 mmHg Heart Rate 80 /min Body Temperature 97.0 F Respiratory Rate 20 /min Weight 191.12 lb 10/05/2017 BP Systolic 130 mmHg BP Diastolic 82 mmHg Heart Rate 66 /min Body Temperature 97.7 F Height 60 inches 5'0" Weight 193.00 lb BMI (Body Mass Index) 37.7 kg/m2 08/23/2017 BP Systolic 148 mmHg BP Diastolic 88 mmHg Heart Rate 72 /min Body Temperature 98.6 F Respiratory Rate 16 /min Height 60 inches 5'0" Weight 196.00 lb BMI (Body Mass Index) 38.3 kg/m2 06/30/2017 BP Systolic 162 mmHg BP Diastolic 92 mmHg Heart Rate 80 /min Body Temperature 97.7 F Height 60 inches 5'0" Weight 194.00 lb BMI (Body Mass Index) 37.9 kg/m2 06/12/2017 BP Systolic 168 mmHg BP Diastolic 92 mmHg Heart Rate 72 /min Body Temperature 97.3 F Respiratory Rate 18 /min Height 60 inches 5'0" Weight 194.00 lb BMI (Body Mass Index) 37.9 kg/m2 05/02/2017 BP Systolic 142 mmHg BP Diastolic 90 mmHg Heart Rate 72 /min Body Temperature 97.7 F Height 60 inches 5'0" Weight 194.12 lb BMI (Body Mass Index) 37.9 kg/m2 01/12/2017 BP Systolic 102 mmHg BP Diastolic 64 mmHg Heart Rate 78 /min Body Temperature 96.6 F Height 60 inches 5'0" Weight 188.25 lb BMI (Body Mass Index) 36.8 kg/m2 12/06/2016 BP Systolic 120 mmHg BP Diastolic 80 mmHg Heart Rate 60 /min Body Temperature 98.0 F Respiratory Rate 18 /min Height 60 inches 5'0" Weight 188.00 lb BMI (Body Mass Index) 36.7 kg/m2 08/31/2016 BP Systolic 138 mmHg BP Diastolic 80 mmHg Heart Rate 72 /min Body Temperature 99.0 F Respiratory Rate 16 /min Height 60 inches 5'0" Weight 183.50 lb BMI (Body Mass Index) 35.8 kg/m2 07/08/2016 BP Systolic 136 mmHg BP Diastolic 80 mmHg Heart Rate 78 /min Body Temperature 98.1 F Respiratory Rate 16 /min Height 60 inches 5'0" Weight 181.00 lb BMI (Body Mass Index) 35.3 kg/m2 03/09/2016 BP Systolic 134 mmHg BP Diastolic 86 mmHg Heart Rate 84 /min Body Temperature 96.8 F Height 60 inches 5'0" Weight 182.50 lb BMI (Body Mass Index) 35.6 kg/m2 01/13/2016 BP Systolic 122 mmHg BP Diastolic 80 mmHg Heart Rate 76 /min Body Temperature 97.7 F Height 60 inches 5'0" Weight 183.38 lb BMI (Body Mass Index) 35.8 kg/m2 09/02/2015 BP Systolic 110 mmHg BP Diastolic 80 mmHg Heart Rate 64 /min Body Temperature 98.3 F Respiratory Rate 18 /min Height 60 inches 5'0" 07/10/2015 BP Systolic 136 mmHg BP Diastolic 70 mmHg Heart Rate 72 /min Body Temperature 97.9 F Respiratory Rate 16 /min Height 60 inches 5'0" Weight 199.50 lb BMI (Body Mass Index) 39.0 kg/m2 12/04/2014 BP Systolic 110 mmHg BP Diastolic 80 mmHg Heart Rate 68 /min Body Temperature 98.2 F Respiratory Rate 18 /min Height 60 inches 5'0" Weight 195.00 lb BMI (Body Mass Index) 38.1 kg/m2 11/28/2014 BP Systolic 134 mmHg BP Diastolic 88 mmHg Heart Rate 66 /min Body Temperature 98.3 F Respiratory Rate 16 /min Height 59 inches 4'11" Weight 198.50 lb BMI (Body Mass Index) 40.1 kg/m2 10/06/2014 BP Systolic 122 mmHg BP Diastolic 78 mmHg Heart Rate 64 /min Body Temperature 98.2 F Respiratory Rate 18 /min Height 59 inches 4'11" Weight 193.00 lb BMI (Body Mass Index) 39.0 kg/m2 08/12/2014 BP Systolic 124 mmHg BP Diastolic 80 mmHg Heart Rate 60 /min Body Temperature 97.4 F Respiratory Rate 18 /min Height 59 inches 4'11" Weight 191.00 lb BMI (Body Mass Index) 38.6 kg/m2 08/06/2014 BP Systolic 124 mmHg BP Diastolic 78 mmHg Heart Rate 80 /min Body Temperature 98.3 F Respiratory Rate 16 /min Height 59 inches 4'11" Weight 190.00 lb BMI (Body Mass Index) 38.4 kg/m2 07/25/2014 BP Systolic 122 mmHg BP Diastolic 78 mmHg Heart Rate 84 /min Body Temperature 99.7 F Respiratory Rate 16 /min Height 59 inches 4'11" Weight 190.00 lb BMI (Body Mass Index) 38.4 kg/m2 07/03/2014 BP Systolic 124 mmHg BP Diastolic 80 mmHg Heart Rate 84 /min Body Temperature 97.9 F Respiratory Rate 16 /min Height 59 inches 4'11" Weight 190.38 lb BMI (Body Mass Index) 38.4 kg/m2 05/14/2014 BP Systolic 130 mmHg BP Diastolic 80 mmHg Heart Rate 76 /min Body Temperature 98.5 F Respiratory Rate 16 /min Height 59 inches 4'11" Weight 193.00 lb BMI (Body Mass Index) 39.0 kg/m2 04/02/2014 BP Systolic 148 mmHg BP Diastolic 86 mmHg Heart Rate 78 /min Body Temperature 98.1 F Respiratory Rate 16 /min Height 59 inches 4'11" Weight 191.25 lb BMI (Body Mass Index) 38.6 kg/m2 Results Test Date Test Result H/L Range Note Laboratory test finding 10/05/2017 Hemoglobin A1c (Fma) 5.9 % High 4.1- 5.7 Rapid Influenza A & B 06/13/2017 Influenza A Molecular NEGATIVE Negative 1 Molecular Influenza B Molecular POSITIVE Negative Ua - Micro (Fma) 05/02/2017 Appearance clear Color yellow Glucose, Urine (Fma/CMC/CTX) neg Bilirubin neg Ketones neg SP Grav 1.010 Blood trace-intact PH 6.0 Protein neg Urobil 0.2 Nitrite neg Leukocytes (Fma/CMC/Centrex) trace Hyaline - /Lpf Granular - /Lpf WBC (Fma,Centrex) 2-3 RBC 1-2 Mucus 0 /Lpf Epith rare /Lpf Bacteria rare /Hpf Amorphous 0 /Lpf Crystals, Fluid (Fma/CMC/CTX) 0 Z#Comments 0 CBC Auto Diff 04/27/2017 White Blood Count 10.6 10^3/uL 3.5-10.8 Red Blood Count 4.30 10^6/uL 4.0-5.4 Hemoglobin 13.0 g/dL 12.0-16.0 Hematocrit 38 % 35-47 Mean Corpuscular Volume 89 fL 80-97 Mean Corpuscular Hemoglobin 30 pg 27-31 Mean Corpuscular HGB Conc 34 g/dL 31-36 Red Cell Distribution Width 13 % 10.5-15 Platelet Count 148 10^3/uL Low 150-450 Mean Platelet Volume 7 um3 Low 7.4-10.4 Abs Neutrophils 9.0 10^3/uL High 1.5-7.7 Abs Lymphocytes 1.2 10^3/uL 1.0-4.8 Abs Monocytes 0.3 10^3/uL 0-0.8 Abs Eosinophils 0 10^3/uL 0-0.6 Abs Basophils 0.1 10^3/uL 0-0.2 Abs Nucleated RBC 0 10^3/uL Granulocyte % 85.0 % High 38-83 Lymphocyte % 11.2 % Low 25-47 Monocyte % 3.1 % 1-9 Eosinophil % 0.1 % 0-6 Basophil % 0.6 % 0-2 Nucleated Red Blood Cells % 0 Basic Metabolic Panel 04/27/2017 Sodium 138 mmol/L 133-145 Potassium 3.8 mmol/L 3.5-5.0 Chloride 105 mmol/L 101-111 Co2 Carbon Dioxide 25 mmol/L 22-32 Anion Gap 8 mmol/L 2-11 Glucose 115 mg/dL High 70-100 Blood Urea Nitrogen 18 mg/dL 6-24 Creatinine 0.93 mg/dL 0.51-0.95 BUN/Creatinine Ratio 19.4 8-20 Calcium 9.5 mg/dL 8.6-10.3 Egfr Non- 62.1 >60 Egfr 79.9 >60 2 Laboratory test finding 01/03/2017 Hemoglobin A1c (Fma) 5.8 % % High 4.1- 5.7 Laboratory test finding 01/03/2017 Free T4 1.18 ng/dL 0.75-1.54 TSH 1.53 mIU/L 0.50-6.00 Complete Blood Count 01/03/2017 WBC 5.1 x10^3/UL 3.6-9.6 RBC 4.28 x10^6/UL 3.90-5.70 HGB 13.1 g/dL 12.1-17.2 HCT 38 % 36-50 MCV 89.0 fL 82.2-97.4 MCH 30.5 pg 27.6-33.3 MCHC 34.3 g/dL 33.0-35.5 RDW 14.1 % High 11.6-13.7 PLT 209 x10^3/UL 150-400 MPV 6.6 fL Low 7.4-10.4 Gran # 2.6 x10^3/UL 1.5-7.2 Lymph# 2.2 x10^3/UL 0.7-4.9 [place]# 0.3 x10^3/UL 0.1-0.9 Gran % 50.2 % 42.2-75.2 Lymph % 42.9 % 20.5-51.1 [place]% 6.9 % 1.7-9.3 Lipid Profile 01/03/2017 Cholesterol 135 mg/dL 120-200 Triglycerides 119 mg/dL 30-200 HDL Cholesterol 45 mg/dL 30-85 LDL (Calculated) 66 CALC 0-129 VLDL Cholesterol 24 mg/dL 0-50 HDL Risk Factor 3.0 CALC 0.0-4.4 Comprehensive Metabolic Prof 01/03/2017 Sodium 144 mEq/L 134-149 Potassium 4.7 mEq/L 3.6-5.5 Chloride 105 mEq/L 94-112 Carbon Dioxide 24 mEq/L 21-32 Glucose 137 mg/dL High 70-105 3 BUN 20 mg/dL 6-26 Creatinine 0.9 mg/dL 0.6-1.4 BUN/Creat Ratio 22.2 CALC 8.0-36.0 Calcium 8.7 mg/dL 8.6-10.2 Total Protein 6.9 g/dL 6.4-8.3 Albumin 4.3 g/dL 3.8-5.5 Globulin 2.6 g/dL 2.0-4.8 A/G Ratio 1.7 CALC 0.6-2.3 Alk. Phosphatase 87 U/L 30-110 Alt (SGPT) 21 U/L 7-35 Ast (Sgot) 20 U/L 5-34 Total Bilirubin 0.5 mg/dL 0.2-1.3 GFR Non- >60 ml/min/1.73m^ >=60 GFR >60 ml/min/1.73m^ >=60 Ua - Micro (Fma) 12/06/2016 Appearance CLEAR Color YELLOW Glucose, Urine (Fma/CMC/CTX) NEG Bilirubin NEG Ketones NEG SP Grav 1.015 Blood TRACE-INTACT PH 6.0 Protein NEG Urobil 0.2 Nitrite NEG Leukocytes (Fma/CMC/Centrex) MOD Hyaline - /Lpf Granular - /Lpf WBC (a,Centrex) 15-20 RBC 2-3 Mucus - /Lpf Epith OCC /Lpf Bacteria 1+ /Hpf Amorphous - /Lpf Crystals, Fluid (Fma/CMC/CTX) - Z#Comments - Ict Hemoccult (Fma) 07/27/2016 Ict Hemoccult (1) 07/12/16 neg Ict Hemoccult-(2) 07/13/16 neg Ict-Hemoccult (3) 07/15/16 neg Laboratory test finding 06/02/2016 TSH 0.93 mIU/L 0.50-6.00 Free T4 1.27 ng/dL 0.75-1.54 Comprehensive Metabolic Prof 06/02/2016 Sodium 143 mEq/L 134-149 Potassium 4.8 mEq/L 3.6-5.5 Chloride 111 mEq/L 94-112 Carbon Dioxide 31 mEq/L 21-32 Glucose 126 mg/dL High 70-105 4 BUN 23 mg/dL 6-26 Creatinine 0.9 mg/dL 0.6-1.4 BUN/Creat Ratio 25.6 CALC 8.0-36.0 Calcium 9.2 mg/dL 8.6-10.2 Total Protein 7.0 g/dL 6.4-8.3 Albumin 4.1 g/dL 3.8-5.5 Globulin 2.9 g/dL 2.0-4.8 A/G Ratio 1.4 CALC 0.6-2.3 Alk. Phosphatase 86 U/L 30-110 Alt (SGPT) 18 U/L 7-35 Ast (Sgot) 18 U/L 5-34 Total Bilirubin 0.5 mg/dL 0.2-1.3 GFR Non- >60 ml/min/1.73m^ >=60 GFR >60 ml/min/1.73m^ >=60 Lipid Profile 06/02/2016 Cholesterol 150 mg/dL 120-200 Triglycerides 133 mg/dL 30-200 HDL Cholesterol 42 mg/dL 30-85 LDL (Calculated) 81 CALC 0-129 VLDL Cholesterol 27 mg/dL 0-50 HDL Risk Factor 3.6 CALC 0.0-4.4 Complete Blood Count 06/02/2016 WBC 5.2 x10^3/UL 3.6-9.6 RBC 4.40 x10^6/UL 3.90-5.70 HGB 13.1 g/dL 12.1-17.2 HCT 39 % 36-50 MCV 90.0 fL 82.2-97.4 MCH 29.7 pg 27.6-33.3 MCHC 33.2 g/dL 33.0-35.5 RDW 13.2 % 11.6-13.7 PLT 148 x10^3/UL Low 150-400 5 MPV 7.2 fL Low 7.4-10.4 Gran # 2.9 x10^3/UL 1.5-7.2 Lymph# 2.1 x10^3/UL 0.7-4.9 [place]# 0.2 x10^3/UL 0.1-0.9 Gran % 53.6 % 42.2-75.2 Lymph % 41.1 % 20.5-51.1 [place]% 5.3 % 1.7-9.3 Laboratory test finding 06/02/2016 Hemoglobin A1c (Fma) 5.6 % 4.1-5.7 Laboratory test finding 04/11/2016 Hemoglobin A1c (Fma) 5.8 % High 4.1- 5.7 Laboratory test finding 01/13/2016 Hemoglobin A1c (Fma) 5.8 % High 4.1- 5.7 Ua - Micro (Fma) 01/13/2016 Appearance clear Color yellow Glucose, Urine (Fma/CMC/CTX) neg Bilirubin neg Ketones neg SP Grav 1.010 Blood moderate PH 5.5 Protein neg Urobil 0.2 Nitrite neg Leukocytes (Fma/CMC/Centrex) neg Hyaline - /Lpf Granular - /Lpf WBC (Fma,Centrex) 0-1 RBC 30-40 Mucus (Fma/CBC/Centrex) small amount /Lpf Epith few /Lpf Bacteria rare /Hpf Amorphous (Fma/CMC/Centrex) - /Lpf Crystals, Fluid (Fma/CMC/CTX) - Z#Comments - Toxassure(R) Select 13 (MW) 01/13/2016 Report Summary FINAL 6, 7 PDF . 6 Laboratory test finding 01/13/2016 PDF [id number] SEE IMAGE 6 Laboratory test finding 10/26/2015 Hemoglobin A1c (Fma) 6.0 % High 4.1- 5.7 Lipid Profile 10/26/2015 Cholesterol 134 mg/dL 120-200 Triglycerides 127 mg/dL 30-200 HDL Cholesterol 42 mg/dL 30-85 LDL (Calculated) 67 CALC 0-129 VLDL Cholesterol 25 mg/dL 0-50 HDL Risk Factor 3.2 CALC 0.0-4.4 Comprehensive Metabolic Prof 10/26/2015 Sodium 142 mEq/L 134-149 Potassium 4.4 mEq/L 3.6-5.5 Chloride 103 mEq/L 94-112 Carbon Dioxide 25 mEq/L 21-32 Glucose 109 mg/dL High 70-105 8 BUN 22 mg/dL 6-26 Creatinine 0.9 mg/dL 0.6-1.4 BUN/Creat Ratio 24.4 CALC 8.0-36.0 Calcium 9.7 mg/dL 8.6-10.2 Total Protein 7.5 g/dL 6.4-8.3 Albumin 4.4 g/dL 3.8-5.5 Globulin 3.1 g/dL 2.0-4.8 A/G Ratio 1.4 CALC 0.6-2.3 Alk. Phosphatase 96 U/L 30-110 Alt (SGPT) 23 U/L 7-35 Ast (Sgot) 22 U/L 5-34 Total Bilirubin 0.6 mg/dL 0.2-1.3 GFR Non- >60 ml/min/1.73m^ >=60 GFR >60 ml/min/1.73m^ >=60 Laboratory test finding 07/10/2015 Hemoglobin A1c (Fma) 6.1 % High 4.1- 5.7 Ua - Micro (Fma) 07/10/2015 Appearance clear Color yellow Glucose, Urine (Fma/CMC/CTX) neg Bilirubin neg Ketones neg SP Grav 1.010 Blood trace-intact PH 6.5 Protein neg Urobil 6.5 Nitrite neg Leukocytes (Fma/CMC/Centrex) neg Hyaline - /Lpf Granular - /Lpf WBC (Fma,Centrex) 0-1 RBC 0-1 Mucus - /Lpf Epith occ /Lpf Bacteria trace /Hpf Amorphous - /Lpf Crystals, Fluid (Fma/CMC/CTX) - Z#Comments - Urine Culture Routine 07/10/2015 Urine Culture, Routine Final report 9 , 10 Result 1 No growth 9, 11 Lipid Profile 03/25/2015 Cholesterol 181 mg/dL 120-200 Triglycerides 200 mg/dL 30-200 HDL Cholesterol 48 mg/dL 30-85 LDL (Calculated) 93 CALC 0-129 VLDL Cholesterol 40 mg/dL 0-50 HDL Risk Factor 3.8 CALC 0.0-4.4 Comprehensive Metabolic Prof 03/25/2015 Sodium 138 mEq/L 134-149 Potassium 4.7 mEq/L 3.6-5.5 Chloride 97 mEq/L 94-112 Carbon Dioxide 28 mEq/L 21-32 Glucose 129 mg/dL High 70-105 12 BUN 17 mg/dL 6-26 Creatinine 1.0 mg/dL 0.6-1.4 BUN/Creat Ratio 17.0 CALC 8.0-36.0 Calcium 9.7 mg/dL 8.6-10.2 Total Protein 7.4 g/dL 6.4-8.3 Albumin 4.4 g/dL 3.8-5.5 Globulin 3.0 g/dL 2.0-4.8 A/G Ratio 1.5 CALC 0.6-2.3 Alk. Phosphatase 81 U/L 30-110 Alt (SGPT) 29 U/L 7-35 Ast (Sgot) 32 U/L 5-34 Total Bilirubin 0.6 mg/dL 0.2-1.3 GFR Non- >60 ml/min/1.73m^ >=60 GFR >60 ml/min/1.73m^ >=60 Laboratory test finding 03/25/2015 TSH 1.31 mIU/L 0.50-6.00 Free T4 1.26 ng/dL 0.75-1.54 Complete Blood Count 03/25/2015 WBC 5.6 x10^3/UL 3.6-9.6 RBC 4.47 x10^6/UL 3.90-5.70 HGB 13.8 g/dL 12.1-17.2 HCT 40 % 36-50 MCV 90.0 fL 82.2-97.4 MCH 30.8 pg 27.6-33.3 MCHC 34.2 g/dL 33.0-35.5 RDW 13.4 % 11.6-13.7 PLT 198 x10^3/UL 150-400 MPV 6.3 fL Low 7.4-10.4 Gran # 3.3 x10^3/UL 1.5-7.2 Lymph# 2.0 x10^3/UL 0.7-4.9 [place]# 0.3 x10^3/UL 0.1-0.9 Gran % 58.3 % 42.2-75.2 Lymph % 35.8 % 20.5-51.1 [place]% 5.9 % 1.7-9.3 Laboratory test finding 03/25/2015 Hemoglobin A1c (Fma/CMC,CX) 6.1 % High 4.1-5.7 Ua - Non Micro (Fma) 12/04/2014 Appearance CLEAR Color YELLOW Glucose, Urine (Fma/CMC/CTX) NEG Bilirubin NEG Ketones NEG SP Grav 1.015 Blood NEG PH 5.5 Protein NEG Urobil 0.2 Nitrite NEG Leukocytes (Fma/CMC/Centrex) NEG Ua - Non Micro (Fma) 11/28/2014 Appearance CLEAR Color YELLOW Glucose, Urine (Fma/CMC/CTX) NEG Bilirubin NEG Ketones NEG SP Grav 1.020 Blood NEG PH 5.5 Protein NEG Urobil 0.2 Nitrite NEG Leukocytes ([facility]/Centrex) TRACE No Micro Per SA. Laboratory test finding 08/06/2014 Rheumatoid Arth Factor 9.1 IU/mL 0.0- 13.9 Laboratory test finding 08/06/2014 Sed Rate 13 mm ([facility]/Centrex) Comprehensive Metabolic 08/06/2014 Sodium 140 mEq/L 134-149 Prof Potassium 4.2 mEq/L 3.6-5.5 Chloride 102 mEq/L 94-112 Carbon Dioxide 28 mEq/L 21-32 Glucose 111 mg/dL High 70-105 13 BUN 21 mg/dL 6-26 Creatinine 0.9 mg/dL 0.6-1.4 BUN/Creat Ratio 23.3 CALC 8.0-36.0 Calcium 9.2 mg/dL 8.6-10.2 Total Protein 7.2 g/dL 6.4-8.3 Albumin 4.1 g/dL 3.8-5.5 Globulin 3.1 g/dL 2.0-4.8 A/G Ratio 1.3 CALC 0.6-2.3 Alk. Phosphatase 81 U/L 30-110 Alt (SGPT) 29 U/L 7-35 Ast (Sgot) 22 U/L 5-34 Total Bilirubin 0.3 mg/dL 0.2-1.3 Laboratory test finding 08/06/2014 Uric Acid 6.2 mg/dL 2.5-9.2 Laboratory test finding 04/08/2014 Hemoglobin A1c 5.3 % 4.1-5.7 ([facility],CX) Laboratory test finding 04/04/2014 TSH 1.06 mIU/L 0.50-6.00 Free T4 1.28 ng/dL 0.75-1.54 Lipid Profile 04/04/2014 Cholesterol 173 mg/dL 120-200 Triglycerides 129 mg/dL 30-200 HDL Cholesterol 52 mg/dL 30-85 LDL (Calculated) 95 CALC 0-129 VLDL Cholesterol 26 mg/dL 0-50 HDL Risk Factor 3.3 CALC 0.0-4.4 Comprehensive Metabolic Prof 04/04/2014 Sodium 136 mEq/L 134-149 Potassium 4.5 mEq/L 3.6-5.5 Chloride 99 mEq/L 94-112 Carbon Dioxide 29 mEq/L 21-32 Glucose 131 mg/dL High 70-105 14 BUN 19 mg/dL 6-26 Creatinine 1.0 mg/dL 0.6-1.4 BUN/Creat Ratio 19.0 CALC 8.0-36.0 Calcium 10.1 mg/dL 8.6-10.2 Total Protein 7.4 g/dL 6.4-8.3 Albumin 4.7 g/dL 3.8-5.5 Globulin 2.7 g/dL 2.0-4.8 A/G Ratio 1.7 CALC 0.6-2.3 Alk. Phosphatase 91 U/L 30-110 Alt (SGPT) 22 U/L 7-35 Ast (Sgot) 22 U/L 5-34 Total Bilirubin 0.5 mg/dL 0.2-1.3 1 [place] [employer] Operator: [id number] 2 Because ethnic data is not always readily available, this report includes an eGFR for both -Americans and non- Americans. The National Kidney Disease Education Program (NKDEP) does not endorse the use of the MDRD equation for patients that are not between the ages of 18 and 70, are , have extremes of body size, muscle mass, or nutritional status, or are non- or non-. According to the National Kidney Foundation, irrespective of diagnosis, the stage of the disease is based on the level of kidney function: Stage Description GFR(mL/min/1.73 m(2)) 1 Kidney damage with normal or decreased GFR 90 2 Kidney damage with mild decrease in GFR 60-89 3 Moderate decrease in GFR 30-59 4 Severe decrease in GFR 15-29 5 Kidney failure <15 (or dialysis) 3 consistent w/ previous results 4 consistent w/ previous results 5 RESULTS VERIFIED BY REPEAT ANALYSIS 6 1 temp urine cup 7 TOXASSURE SELECT 13 (MW) Test Result Flag Units NO DRUGS DETECTED. Test Result Flag Units Ref Range Creatinine 56 mg/dL >=20 Declared Medications: Medication list was not provided. For clinical consultation, please call . 8 NON-FASTING 9 SRC:urine 1 nava top urine tube 10 Source of Specimen: urine 1 nava top urine 11 Source of Specimen: urine 1 nava top urine 12 RESULTS VERIFIED BY REPEAT ANALYSIS 13 consistent w/ previous results 14 RESULTS VERIFIED BY REPEAT ANALYSIS Procedures Date CPT Code Description Status 10/05/2017 19416 Finger Or Heel Stick Completed 09/08/2017 Mammogram Completed 08/03/2016 Mammogram Completed 04/11/2016 81938 Finger Or Heel Stick Completed 01/13/2016 25043 Finger Or Heel Stick Completed 12/10/2014 Mammogram Completed 04/08/2014 18301 Finger Or Heel Stick Completed Encounters Type Date Location Provider CPT E/M Dx Office Visit 10/05/2017 9:00a [facility] Lorraine Peck, [facility] [address] J30.9 H68.001 R73.01 Office Visit 08/23/2017 11:30a [facility] Lorraine Peck, [facility] [address] L29.8 Office Visit 06/30/2017 10:00a [facility] Lorraine Peck, [facility] [address] J06.9 I10 R73.01 L20.9 Office Visit 06/12/2017 3:50p [facility] [place] [address] J06.9 Office Visit 05/02/2017 2:00p [facility] Lauren HilJuan patel-C [address]37[address] N20.2 Office Visit 01/12/2017 10:00a [facility] Lynda Mancuso, [facility] [address] Z00.00 Office Visit 12/06/2016 10:20a [facility] Marj Turner M.D. 47549 N20.0 Office Visit 08/31/2016 11:20a [facility] Sandhya Dumont M.D. [address]7612 R19.7 Office Visit 07/08/2016 10:30a [facility] Sandhya Dumont M.D. 16907 I10 R73.01 E03.8 Office Visit 03/09/2016 10:00a [facility] Lorraine Peck, [facility] [address]74 R73.01 I10 F43.0 F34.1 Z23 Office Visit 01/13/2016 1:30p [facility] Lorraine Peck, [facility] 66089 R73.09 I10 M25.561 N23 F43.0 F34.1 Office Visit 09/02/2015 1:00p [facility] Lorraine Peck, [facility] [address]17 R73.09 Office Visit 07/10/2015 11:30a [facility] Lorraine Peck, [facility] [address]33 R73.09 N23 M25.552 Office Visit 12/04/2014 10:00a [facility] Lynda Mancuso, [facility] [address] V72.31 V76.10 Office Visit 11/28/2014 10:00a [facility] [place] [address] 788.0 Office Visit 10/06/2014 10:00a [facility] LorraineCHELSI Dubon [address]248 719.46 Office Visit 08/12/2014 1:00p [facility] Lauren DaughertySamira [address] 729.5 Office Visit 08/06/2014 3:45p [facility] CHELSI Eller [address] 719.46 790.6 Office Visit 07/25/2014 3:20p [facility] Jamal Goodrich M.D. 39494 465.9 719.46 Office Visit 07/03/2014 1:30p [facility] [place] [address] 729.5 Office Visit 05/14/2014 10:50a [facility] Sandhya Dumont M.D. 63325 692.9 Office Visit 04/02/2014 10:30a [facility] Sandhya Dumont M.D. 47241 244.9 272.4 401.1 530.81 493.90 296.30 682.9 Plan of Care Future Appointment(s):01/17/2018 9:30 am - CHELSI Eller at [facility] Tzshzh5612/27/2017 - Holly Castrejon, NPM54.2 CervicalgiaNew Medication: Cyclobenzaprine HCL 5 mgPhysical TherapyComments:Keep taking naproxen, start physical therapy. I encourage you to warm your muscles and do range of motion exercises as I demonstrated.M25.511 Pain in right jowgaqobE43.0 Calculus of kidneyNew Labs:Stone AnalysisComments:Follow up with Dr. ChanDon't take any extra calcium for now.
[2017-12-29 20:29] VITALS: BP 175/80
--- NOTE | 2017-12-29 21:00 | UC ---
General HPI - HPI Summary HPI Summary: pt is c/o a 1 week hx of "stiffness" to the R side of her neck and "tension" to her upper back. she called her pcp 3 days ago who prescribed naprosyn by phone then went in the following day for an evaluation since she had recently passed a kidney stone and for a check of her neck. they added a muscle relaxer to her tx and prescribed PT. she is not able to start PT until next week. she didn't take the muscle relaxer because of listed side effects. she denies any associated cp, sob, wheezing and sweating. she denies hx CAD. no hx of injury or pain in the spine. pt wants to know what more I can do to help. pt is a vague historian and is difficult to keep focused. - History of Current Complaint Chief Complaint: UCGeneralIllness Stated Complaint: UPPER RESPIRATORY, NECK/BACK PAIN Time Seen by Provider: 12/29/17 20:39 Hx Obtained From: Patient Hx Last Menstrual Period: hysterectomy Pain Intensity: 8 Associated Signs & Symptoms: Negative: Chest Pain, Fever, SOB, Wheezing - Allergy/Home Medications Allergies/Adverse Reactions: Allergies Allergy/AdvReac Type Severity Reaction Status Date / Time IVP dye Allergy Severe Dizziness Uncoded 12/29/17 20:20 PMH/Surg Hx/FS Hx/Imm Hx Endocrine History: Thyroid Disease Cardiovascular History: Hypertension Respiratory History: Asthma GI/ History: Gastroesophageal Reflux, Kidney Stones - Surgical History Surgical History: Yes Surgery Procedure, Year, and Place: cholecystectomy, hysterectomy, ,. STENT PLACEMENT FOR KIDNEY STONES - Family History Known Family History: Positive: Hypertension, Diabetes - Social History Alcohol Use: Occasionally Substance Use Type: None Smoking Status (MU): Never Smoked Tobacco - Immunization History Most Recent Tetanus Shot: 2017 Vaccination Up to Date: Yes Review of Systems Constitutional: Negative Skin: Negative Eyes: Negative ENT: Negative Respiratory: Negative Cardiovascular: Negative Gastrointestinal: Negative Genitourinary: Negative Motor: Negative Neurovascular: Negative Musculoskeletal: Other: - discomfort R side of neck and upper back Neurological: Negative Psychological: Negative Is Patient Immunocompromised?: No All Other Systems Reviewed And Are Negative: Yes Physical Exam Triage Information Reviewed: Yes Appearance: Well-Appearing - visiting on cell phone when I entered her room Vital Signs: Initial Vital Signs Temp 98 F 12/29/17 20:24 Pulse 96 12/29/17 20:24 Resp 18 12/29/17 20:24 BP 175/80 12/29/17 20:24 Pulse Ox 100 12/29/17 20:24 Vital Signs Reviewed: Yes Eyes: Positive: Conjunctiva Clear ENT: Positive: Pharynx normal, TMs normal. Negative: Nasal congestion, Nasal drainage Neck: Positive: Supple, No Lymphadenopathy, Other: - c-spine non tender. Respiratory: Positive: Lungs clear, Normal breath sounds, No respiratory distress Cardiovascular: Positive: RRR, No Murmur, Pulses Normal Abdomen Description: Positive: Nontender, No Organomegaly, Soft Bowel Sounds: Positive: Present Musculoskeletal: Positive: Other: - Inspection of the neck and back reveals no gross deformity swelling or discoloration. Cervical, thoracic and lumbar spinous processes are nontender to palpation. Right-sided trapezius and center of the upper back are both tender to palpation. Patient has full range of motion throughout her back. She is 5 out of 5 strength and 2+ reflexes 4. Neurological: Positive: Alert Psychological: Positive: Age Appropriate Behavior Skin Exam: Normal Skin: Negative: rashes Diagnostics - EKG Cardiac Rate: NL Cardiac Rhythm: Sinus: Normal Ectopy: None ST Segment: Normal Course/Dx - Course Course Of Treatment: Exam is c/w trapezius mm pain. Since pt is a vague historian and having 4 day hx constant upper back and R sided neck pain, an ekg was done and is unremarkable plus no exertional component thus no concern for cardiac pathology. No concern for PE, PTX or dissection. pt to resume her naprosyn, start the mm relaxer as directed and PT as scheduled. BP 175/80. hx htn and pt admits to not taking her bp pill today. no s/s's to suggest hypertensive urgency or emergency. repeat BP 150/77. pt advised to resume her BP medications. - Differential Dx - Multi-Symptom Provider Diagnoses: Trapezius muscle spasm. Discharge - Sign-Out/Discharge Documenting (check all that apply): Patient Departure All imaging exams completed and their final reports reviewed: No Studies - Discharge Plan Condition: Stable Disposition: HOME Patient Education Materials: Muscle Spasm (ED) Referrals: Sandhya Dumont MD [Primary Care Provider] - 4 Days Additional Instructions: TAKE THE MUSCLE RELAXER AND THE NAPROSYN DIRECTED. FOLLOW UP WITH PHYSICAL THERAPY SCHEDULED. - Billing Disposition and Condition Condition: STABLE Disposition: Home
== END 2017-12-29 21:40 | disposition home or self-care (01) ==
LOC: UCCORT 20:13
DX: M62.838 Other muscle spasm (principal); M54.2 Cervicalgia; I10 Essential (primary) hypertension; J45.909 Unspecified asthma, uncomplicated; Z91.041 Radiographic dye allergy status
CPT/HCPCS: 93005; 99211; G0463

== ENCOUNTER 2018-03-17 19:11 | Emergency (ER) | payer OTHER ==
--- OUTSIDE RECORDS SUMMARY | 2018-03-17 19:20 | XMS REPORT ---
:1960 External Reference #:[id number] Author Organization [facility] Address [address] [place] [address] Phone [phone] Care Team Providers Name Role Phone Sandhya Dumont M.D. Care Team Information Account Development Representative Unavailable Sandhya Dumont M.D. Primary Care Physician Unavailable Payers Type Date Identification Numbers Payment Provider Subscriber Medicaid Effective: Policy Number: [id number] [facility] Ingris Sheehan 2014 PayID: [id number] [address] [address] [place] [address] Problems Date Description Provider Status Onset: 04/02/2014 [...] 03/25/2015 Kidney stone Sandhya Dumont M.D. Active Onset: 12/30/2017 Acute bronchitis Jarad Almaguer M.D. Active Family History Date Family Member(s) [...] Form Strength Qnty SIG Indications Ordering Provider Ketotifen 02/16 Active Solution 0.025% Lorraine Fumarate Liv, BLANCHARD GRINDER OPERATOR Physical Therapy 12/27 Active please M54.2 Holly C. /2017 diagnose Cash, and treat X RAY SERVICE ENGINEER for neck and upper back pain Metoprolol 06/30 Active Tablets ER 200mg 90tab 1 by J06.9 Mouna Elizabeth Succinate ER 24HR s mouth ALINA Pérez daily Hydrocortisone 06/30 Active Cream 1% 28.40 apply Lorraine Plus 0gm sparingly Liv, to BLANCHARD GRINDER OPERATOR affected areas of skin Freestyle Lite 10/01 Active Device 1unit test 3 Lorraine Blood Glucose s times a Liv, Monitoring System day or as BLANCHARD GRINDER OPERATOR directed dx:r73.09 Freestyle Lite 10/01 Active Strips 100un test 3 Lorraine Test its times a Liv, day or as BLANCHARD GRINDER OPERATOR directed dx:r73.09 Freestyle Lancets 10/01 Active Misc 100un test 3 Lorraine /2015 its times a Liv, day or as BLANCHARD GRINDER OPERATOR directed dx:r73.09 Aerochamber Plus 11/06 Active Misc 1unit Use with s inhaler ALINA Rock Ventolin HFA 04/02 Active Aerosol 108(90Bas 1mdi 2 puffs J45.909 e) every 4 Liv, mcg/Act hours as BLANCHARD GRINDER OPERATOR needed Simvastatin 04/02 Active Tablets 20mg 30tab take one Lorraine /2014 s tablet by Liv, mouth BLANCHARD GRINDER OPERATOR every day Omeprazole 04/02 Active Capsules 20mg 30cap Take One K21.9 Gianni A. s Capsule Juan Diego, By Mouth M.D. Every Day Levothyroxine 04/02 Active Tablets 75mcg 30tab Take One Mouna Elizabeth Sodium s Tablet By ALINA Pérez Mouth Every Day Marquis 128 02/16 Hx Solution 5% [place], - M.DNatanael 02/16 Patanol 01/25 Hx Solution 0.1% 5ml 1 drop in both eyes Liv, - twice a BLANCHARD GRINDER OPERATOR 02/16 day in spring and fall allergy season Breo Ellipta 01/17 Hx Aerosol 100-25mcg 1 J20.9 Lorraine /Inh inhalatio Liv, - n once BLANCHARD GRINDER OPERATOR 02/28 per day rinse, samples Methylprednisolon 12/30 Hx TBPK 4mg 21uni take as Jarad F. e ts directed Rosina, - M.D. 01/09 Azithromycin 12/30 Hx Tablets 250mg 6tabs take 2 Jarad F. tablets Shallish, - by mouth M.D. 01/15 on day then 1 tablet on days 2 through 5 Cyclobenzaprine 12/27 Hx Tablets 5mg 45tab 1-2 by M54.2 Holly C. HCL s mouth 3 Cash, - times per X RAY SERVICE ENGINEER 01/17 day needed for muscle spasm Claritin 10/05 Hx Tablets 10mg 90tab 1 by J30.9 Mouna Elizabeth s mouth Pérez, X RAY SERVICE ENGINEER - every day 02/28 Fluticasone 10/05 Hx Suspension 50mcg/Act 1bott 1 sprays H68.001 Lorraine Propionate /2017 le each Liv, - nostril BLANCHARD GRINDER OPERATOR 12/27 Saline Nasal 10/05 Hx Solution 0.65% 44ml 1-2 H68.001 Lorraine [place] sprays Liv, - twice BLANCHARD GRINDER OPERATOR 12/27 each nostril Aquaphor 06/30 Hx Ointment 50gm apply to affected Liv, - excoriate BLANCHARD GRINDER OPERATOR 12/27 d skin 2-4 times daily to provide a barrier, moisture Benzonatate 06/20 Hx Capsules 100mg 30cap 1 tab q6 Sandhya s hours as , - needed M.D. 06/30 cough Loperamide HCL 08/31 Hx Capsules 2mg 30cap 2 tabs at R19.7 s onset of [place], - diarrhea M.D. 01/11 and repeat after each loose stool Max 8 tabs daily Sertraline HCL 01/12 Hx Tablets 25mg 30tab 1 by F43.0 Lorraine s mouth Liv, - every day BLANCHARD GRINDER OPERATOR 03/08 Andry Contour 09/21 Hx 100un test 3 Lorraine Next Ez Blood its times a Liv, Glucose Test - week or BLANCHARD GRINDER OPERATOR Strips 10/01 as directed r73.09 Andry Contour 09/21 Hx 100un test 3 Lorraine Next Ez Lancets its times a Liv, - day or as BLANCHARD GRINDER OPERATOR 10/01 directed dx:r73.09 Hydrocodone-Aceta 07/09 Hx Tablets 5-325mg 30tab 1-2 by Lorraine minophen s mouth Liv, - every BLANCHARD GRINDER OPERATOR 01/12 q6hr as needed pain Hydrocodone-Aceta 08/12 Hx Tablets 5-325mg 30tab 1-2 by Lauren minophen s mouth [place], - every Afnp-C 07/09 q6hr needed pain Naproxen 08/06 Hx Tablets 500mg 40tab 1 po bid 719.46 Lorraine s prn pain Liv, - BLANCHARD GRINDER OPERATOR 07/09 Physical Therapy 08/06 Hx please 719.46 Lorraine eval/ramez Liv, - t right BLANCHARD GRINDER OPERATOR 10/06 knee, /2014 quad tendon pain Meloxicam 07/25 Hx Tablets 15mg 30tab 1 by 719.46 Jamal Goodrich, /2014 s mouth M.D. - every day 10/06 Naproxen 07/03 Hx Tablets 500mg 60tab 1 by 729.5 Alexandra s mouth Brown, X RAY SERVICE ENGINEER - twice a 07/25 day with food Mometasone 05/14 Hx Ointment 0.1% 30g 1 apply 692.9 Sandhya Furoate /2014 to [place], - affected M.D. 07/09 area twice a day for up to 7 days Cephalexin 04/02 Hx Capsules 500mg 1 by Family /2013 mouth qid Medicine - x10 days [facility] Metoprolol 04/02 Hx Tablets ER 100mg 30tab take one J06.9 Lynda Succinate ER /2013 24HR s tablet by Jamee, - mouth BLANCHARD GRINDER OPERATOR 06/30 every Naproxen Hx Tablets 500mg 60tab 1 by Alber Manley /Andrés Hua, Gauri twice a MD food Immunizations CPT Code Status Date Vaccine Lot # [id number] Given 01/17/2018 Influenza Vac, Quadrivalent, Slit Virus, Im [id number] Given 08/03/2016 Tetanus And Diptheria Adult Preservative Free [id number] >7Yrs [id number] Given 03/09/2016 Influenza Vac, Quadrivalent, Slit Virus, Im [id number] Given 02/27/2015 Influenza Vac, Quadrivalent, Slit Virus, Im [id number] Vital Signs Date Vital Result Comment 02/28/2018 BP Systolic 140 mmHg BP Diastolic 88 mmHg Heart Rate 78 /min Body Temperature 97.9 F Respiratory Rate 16 /min Height 59 inches 4'11" Weight 194.00 lb BMI (Body Mass Index) 39.2 kg/m2 01/17/2018 BP Systolic 132 mmHg BP Diastolic 80 mmHg Heart Rate 60 /min Body Temperature 98.0 F Respiratory Rate 16 /min Height 59 inches 4'11" Weight 193.00 lb BMI (Body Mass Index) 39.0 kg/m2 12/30/2017 BP Systolic 142 mmHg BP Diastolic 80 mmHg Heart Rate 78 /min Body Temperature 97.9 F Respiratory Rate 16 /min O2 % BldC Oximetry 97 % 12/27/2017 BP Systolic 150 mmHg BP Diastolic [...] Result H/L Range Note Laboratory test finding 02/28/2018 TSH <pending> 0.5-5.0 Free T4 <pending> 0.75-1.54 Ferritin <pending> 6-115 Laboratory test finding 02/06/2018 Cologuard SEE ATTACHED Comprehensive Metabolic Prof 01/17/2018 Sodium 134 mEq/L 134-149 Potassium 3.9 mEq/L 3.6-5.5 Chloride 102 mEq/L 94-112 Carbon Dioxide 28 mEq/L 21-32 Glucose 126 mg/dL High 70-105 1 BUN 15 mg/dL 6-26 Creatinine 0.8 mg/dL 0.6-1.4 BUN/Creat Ratio 18.8 CALC 8.0-36.0 Calcium 9.5 mg/dL 8.6-10.2 Total Protein 7.1 g/dL 6.4-8.3 Albumin 4.7 g/dL 3.8-5.5 Globulin 2.4 g/dL 2.0-4.8 A/G Ratio 2.0 CALC 0.6-2.3 Alk. Phosphatase 90 U/L 30-110 Alt (SGPT) 21 U/L 7-35 Ast (Sgot) 20 U/L 5-34 Total Bilirubin 0.8 mg/dL 0.2-1.3 GFR Non- >60 ml/min/1.73m^ >=60 GFR >60 ml/min/1.73m^ >=60 Lipid Profile 01/17/2018 Cholesterol 157 mg/dL 120-200 Triglycerides 160 mg/dL 30-200 HDL Cholesterol 50 mg/dL 30-85 LDL (Calculated) 75 CALC 0-129 VLDL Cholesterol 32 mg/dL 0-50 HDL Risk Factor 3.1 CALC 0.0-4.4 Laboratory test finding 01/17/2018 TSH 0.77 mIU/L 0.50-6.00 CBC Electronic Fma 01/17/2018 WBC 5.2 x10^3/UL 4.0-10.0 RBC 4.39 x10^6/UL 3.93-6.00 HGB 13.4 g/dL 12.0-17.0 HCT 39 % 35-50 MCV 88.6 fL 80.0-95.0 MCH 30.5 pg 25.6-32.2 MCHC 34.4 g/dL 32.2-36.0 RDW-CV 12.8 % 11.6-14.4 PLT 160 x10^3/UL Low 163-400 MPV 9.2 fL Low 9.4-12.4 Mayra# 2.54 x10^3/UL 1.56-6.13 Lymph# 2.10 x10^3/UL 1.18-3.74 Oneida# 0.35 x10^3/UL 0.24-0.82 Eos # 0.2 x10^3/UL 0.0-0.5 Baso # 0.04 x10^3/UL 0.01-0.08 Mayra% 48.7 % 34.0-70.0 Lymph % 40.3 % 20.0-52.0 One[place]% 6.7 % 5.0-12.0 Eos% 3.5 % 0.7-7.0 Baso% 0.8 % 0.1-1.2 Laboratory test finding 12/27/2017 Surgical Pathology SEE RESULT BELOW 2 Stone Analysis 12/27/2017 Kidney Stone Source Kidney Kidney Stone 1st Constituent See Comment 3 Laboratory test finding 10/05/2017 Hemoglobin A1c (Fma) 5.9 % High 4.1- 5.7 Rapid Influenza A & B 06/13/2017 Influenza A Molecular NEGATIVE Negative 4 Molecular Influenza B Molecular POSITIVE Negative Ua [...] Egfr Non- 62.1 >60 Egfr 79.9 >60 5 Laboratory test finding 01/03/2017 Hemoglobin A1c (Fma) [...] 2.6 x10^3/UL 1.5-7.2 Lymph# 2.2 x10^3/UL 0.7-4.9 One[place]# 0.3 x10^3/UL 0.1-0.9 Gran % 50.2 % 42.2-75.2 Lymph % 42.9 % 20.5-51.1 [place]% 6.9 % 1.7-9.3 Lipid Profile 01/03/2017 Cholesterol 135 mg/dL 120-200 Triglycerides 119 mg/dL 30-200 HDL Cholesterol 45 mg/dL 30-85 LDL (Calculated) 66 CALC 0-129 VLDL Cholesterol 24 mg/dL 0-50 HDL Risk Factor 3.0 CALC 0.0-4.4 Comprehensive Metabolic Prof 01/03/2017 Sodium 144 mEq/L 134-149 Potassium 4.7 mEq/L 3.6-5.5 Chloride 105 mEq/L 94-112 Carbon Dioxide 24 mEq/L 21-32 Glucose 137 mg/dL High 70-105 6 BUN 20 mg/dL 6-26 Creatinine 0.9 mg/dL [...] - /Lpf Granular - /Lpf WBC (Fma,Centrex) 15-20 RBC 2-3 Mucus - /Lpf Epith [...] mEq/L 21-32 Glucose 126 mg/dL High 70-105 7 BUN 23 mg/dL 6-26 Creatinine 0.9 mg/dL [...] % 11.6-13.7 PLT 148 x10^3/UL Low 150-400 8 MPV 7.2 fL Low 7.4-10.4 Gran # 2.9 x10^3/UL 1.5-7.2 Lymph# 2.1 x10^3/UL 0.7-4.9 One[place]# 0.2 x10^3/UL 0.1-0.9 Gran % 53.6 % 42.2-75.2 Lymph % 41.1 % 20.5-51.1 Oneida% 5.3 % 1.7-9.3 Laboratory test finding 06/02/2016 Hemoglobin A1c (Fma) 5.6 % 4.1-5.7 Laboratory test finding 04/11/2016 Hemoglobin A1c (Fma) 5.8 % High 4.1- 5.7 Laboratory test finding 01/13/2016 PDF [id number] SEE IMAGE 9 Toxassure(R) Select 13 01/13/2016 Report Summary FINAL 9, 10 (MW) PDF . 9 Laboratory test finding 01/13/2016 Hemoglobin A1c (Fma) [...] /Lpf Crystals, Fluid (Fma/CMC/CTX) - Z#Comments - Lipid Profile 10/26/2015 Cholesterol 134 mg/dL 120-200 Triglycerides 127 mg/dL 30-200 HDL Cholesterol 42 mg/dL 30-85 LDL (Calculated) 67 CALC 0-129 VLDL Cholesterol 25 mg/dL 0-50 HDL Risk Factor 3.2 CALC 0.0-4.4 Comprehensive Metabolic Prof 10/26/2015 Sodium 142 mEq/L 134-149 Potassium 4.4 mEq/L 3.6-5.5 Chloride 103 mEq/L 94-112 Carbon Dioxide 25 mEq/L 21-32 Glucose 109 mg/dL High 70-105 11 BUN 22 mg/dL 6-26 Creatinine 0.9 mg/dL [...] GFR >60 ml/min/1.73m^ >=60 Laboratory test finding 10/26/2015 Hemoglobin A1c (Fma) 6.0 % High 4.1- 5.7 Laboratory test finding 07/10/2015 Hemoglobin A1c (Fma) [...] Routine 07/10/2015 Urine Culture, Routine Final report 12 , 13 Result 1 No growth 12, 14 Lipid Profile 03/25/2015 Cholesterol 181 mg/dL 120-200 Triglycerides 200 mg/dL 30-200 HDL Cholesterol 48 mg/dL 30-85 LDL (Calculated) 93 CALC 0-129 VLDL Cholesterol 40 mg/dL 0-50 HDL Risk Factor 3.8 CALC 0.0-4.4 Comprehensive Metabolic Prof 03/25/2015 Sodium 138 mEq/L 134-149 Potassium 4.7 mEq/L 3.6-5.5 Chloride 97 mEq/L 94-112 Carbon Dioxide 28 mEq/L 21-32 Glucose 129 mg/dL High 70-105 15 BUN 17 mg/dL 6-26 Creatinine 1.0 mg/dL [...] 3.3 x10^3/UL 1.5-7.2 Lymph# 2.0 x10^3/UL 0.7-4.9 [place]# 0.3 x10^3/UL 0.1-0.9 Gran % 58.3 % 42.2-75.2 Lymph % 35.8 % 20.5-51.1 [place]% 5.9 % 1.7-9.3 Laboratory test finding 03/25/2015 Hemoglobin A1c (a/[facility],CX) 6.1 % High 4.1-5.7 Ua - Non Micro (Fma) 12/04/2014 Appearance CLEAR Color YELLOW Glucose, Urine (a/CMC/CTX) NEG Bilirubin NEG Ketones NEG SP Grav 1.015 Blood NEG PH 5.5 Protein NEG Urobil 0.2 Nitrite NEG Leukocytes (a/[facility]/Centrex) NEG Ua - Non Micro (Fma) 11/28/2014 Appearance CLEAR Color YELLOW Glucose, Urine (a/CMC/CTX) NEG Bilirubin NEG Ketones NEG SP Grav 1.020 Blood NEG PH 5.5 Protein NEG Urobil 0.2 Nitrite NEG Leukocytes (a/[facility]/Centrex) TRACE No Micro Per SA. Laboratory test finding 08/06/2014 Sed Rate (a/[facility]/Centrex) 13 mm Laboratory test finding 08/06/2014 Rheumatoid Arth Factor 9.1 IU/mL 0.0- 13.9 Comprehensive Metabolic 08/06/2014 Sodium 140 mEq/L 134-149 Prof Potassium 4.2 mEq/L 3.6-5.5 Chloride 102 mEq/L 94-112 Carbon Dioxide 28 mEq/L 21-32 Glucose 111 mg/dL High 70-105 16 BUN 21 mg/dL 6-26 Creatinine 0.9 mg/dL [...] finding 04/08/2014 Hemoglobin A1c 5.3 % 4.1-5.7 (Fma/CMC,CX) Laboratory test finding 04/04/2014 TSH 1.06 mIU/L [...] mEq/L 21-32 Glucose 131 mg/dL High 70-105 17 BUN 19 mg/dL 6-26 Creatinine 1.0 mg/dL 0.6-1.4 BUN/Creat Ratio 19.0 CALC 8.0-36.0 Calcium 10.1 mg/dL 8.6-10.2 Total Protein 7.4 g/dL 6.4-8.3 Albumin 4.7 g/dL 3.8-5.5 Globulin 2.7 g/dL 2.0-4.8 A/G Ratio 1.7 CALC 0.6-2.3 Alk. Phosphatase 91 U/L 30-110 Alt (SGPT) 22 U/L 7-35 Ast (Sgot) 22 U/L 5-34 Total Bilirubin 0.5 mg/dL 0.2-1.3 1 consistent w/ previous results 2 SEE RESULT BELOW Name: INGRIS SHEEHAN : [address]: Holly Castrejon X RAY SERVICE ENGINEER Acct: [id number] Unit: [id number] AGE: 57 Location: [facility] Re12/27/17 SEX: F Status: REG REF SPEC: [id number] SARAH: 12/27/17 [facility] DR: Holly Castrejon X RAY SERVICE ENGINEER REQ: [id number] RECD: 12/27/17 STATUS: SOUT _ ORDERED: LEVEL 1 COMMENTS: [id number] FINAL DIAGNOSIS Kidney, lithotomy: Calculus (gross diagnosis) PRE-OPERATIVE DIAGNOSIS Stone analysis GROSS DESCRIPTION The specimen is received fresh with no source identified and a requisition labeled, Stone, and consists of a 0.5 x 0.4 x 0.3 cm brown irregular calculus consistent with a renal calculus. The specimen is submitted for chemical analysis. Per established hospital medical staff protocol, no tissue is submitted. Gross only. Signed by and Reported on: Juan Evans MD [address] END OF REPORT DEPARTMENT OF PATHOLOGY, [address] [place] [address] Juan Evans M.D[address] Director [facility] # [id number] 3 RESULT: 100% Calcium oxalate monohydrate ADDITIONAL INFORMATION This test was developed and its performance characteristics determined by [facility] in a manner consistent with CLIA requirements. This test has not been cleared or approved by the U.S. Food and Drug Administration. Test Performed by: [facility] [address] [place] [address] 4 Offset Second Press Operator: [id number] 5 Because ethnic data is not always readily [...] 15-29 5 Kidney failure <15 (or dialysis) 6 consistent w/ previous results 7 consistent w/ previous results 8 RESULTS VERIFIED BY REPEAT ANALYSIS 9 1 temp urine cup 10 TOXASSURE SELECT 13 (MW) Test Result Flag Units NO DRUGS DETECTED. Test Result Flag Units Ref Range Creatinine 56 mg/dL >=20 Declared Medications: Medication list was not provided. For clinical consultation, please call . 11 NON-FASTING 12 SRC:urine 1 nava top urine tube 13 Source of Specimen: urine 1 nava top urine 14 Source of Specimen: urine 1 nava top urine 15 RESULTS VERIFIED BY REPEAT ANALYSIS 16 consistent w/ previous results 17 RESULTS VERIFIED BY REPEAT ANALYSIS Procedures Date CPT Code Description Status 01/17/2018 50969 Nebulizer Treatment Completed 12/30/2017 20767 Pulse Oximetry Completed 10/05/2017 47886 Finger Or Heel Stick Completed 09/08/2017 Mammogram Completed 08/03/2016 Mammogram Completed 04/11/2016 50498 Finger Or Heel Stick Completed 01/13/2016 56172 Finger Or Heel Stick Completed 12/10/2014 Mammogram Completed 04/08/2014 69727 Finger Or Heel Stick Completed Encounters Type Date Location Provider CPT E/M Dx Office Visit 01/17/2018 9:30a [facility] CHELSI Eller 03522 J20.9 R05 R73.01 I10 E78.2 Z00.00 Z23 Office Visit 12/30/2017 11:50a [facility] Jarad Almaguer M.D. 08571 J20.9 Office Visit 12/27/2017 2:15p [facility] Holly Castrejon, X RAY SERVICE ENGINEER 22497 M54.2 M25.511 N20.0 Office Visit 10/05/2017 9:00a [facility] Lorraine Fowlerbhart, [facility] 37565 J30.9 H68.001 R73.01 Office Visit 08/23/2017 11:30a [facility] Lorraine Peck, [facility] 68325 L29.8 Office Visit 06/30/2017 10:00a [facility] Lorraine Fowlerbhart, [facility] 16173 J06.9 I10 R73.01 L20.9 Office Visit 06/12/2017 3:50p [place] [address] J06.9 Office Visit 05/02/2017 2:00p [facility] Office Lauren HilJuan patel-C 50555 N20.2 Office Visit 01/12/2017 10:00a [facility] Lynda Mendozarer, [facility] 88553 Z00.00 Office Visit 12/06/2016 10:20a [facility] Office Marj Turner M.D. 76025 N20.0 Office Visit 08/31/2016 11:20a [facility] Office Sandhya Dumont M.D. 76758 R19.7 Office Visit 07/08/2016 10:30a [facility] Office Sandhya Dumont M.D. 90720 I10 R73.01 E03.8 Office Visit 03/09/2016 10:00a [facility] Lorraine Fowlerbhart, [facility] 37170 R73.01 I10 F43.0 F34.1 Z23 Office Visit 01/13/2016 1:30p [facility] Lorraine Fowlerbhart, [facility] 32153 R73.09 I10 M25.561 N23 F43.0 F34.1 Office Visit 09/02/2015 1:00p [facility] Lorraine Fowlerbhart, [facility] 86162 R73.09 Office Visit 07/10/2015 11:30a [facility] Lorraine Peck, [facility] 70048 R73.09 N23 M25.552 Office Visit 12/04/2014 10:00a [facility] Lynda Mancuso, [facility] 97755 V72.31 V76.10 Office Visit 11/28/2014 10:00a [place] [address] 788.0 Office Visit 10/06/2014 10:00a [facility] Lorraine Peck, BLANCHARD GRINDER OPERATOR 64888 719.46 Office Visit 08/12/2014 1:00p [facility] Lauren Daugherty, Afnp-C 81205 729.5 Office Visit 08/06/2014 3:45p [facility] Lorraine Peck, [facility] 90828 719.46 790.6 Office Visit 07/25/2014 3:20p [facility] Office Jamal Goodrich M.D. 23705 465.9 719.46 Office Visit 07/03/2014 1:30p [facility] [place] [address] 729.5 Office Visit 05/14/2014 10:50a [facility] Sandhya Dumont M.D. 01458 692.9 Office Visit 04/02/2014 10:30a [facility] Office Sandhya Dumont M.D. 99906 244.9 272.4 401.1 530.81 493.90 296.30 682.9 Plan of Care 02/28/2018 - Lorraine Liv, FNPE03.9 Hypothyroidism, nliejgbotrdR23.8 Other nail disordersAllComments:~B_~U_Medication Management~b_~u_ Patient Understands medications he 's taking? Yes No Are there Barriers to Adherence? Yes No Has the patient been asked about herbal supplements and therapies, and OTC meds? Yes No As always, we strongly encourage a healthy diet and makingphysical activity a part of your every day life. If you have questions about how or where to start, please contact the office.
[2018-03-17] MEDS ORDERED: predniSONE TAB* 20 MG PO ONE (19:26)
[2018-03-17 19:27] VITALS: BP 162/79
--- NOTE | 2018-03-17 19:29 | UC ---
UC General HPI - HPI Summary HPI Summary: 2 WEEK HX OF CONGESTED COUGH. NO ABLE TO RAISE SECRETIONS. NO FEVER. HX ASTHMA. - History of Current Complaint Stated Complaint: COUGH/CONGESTION Time Seen by Provider: 03/17/18 19:18 Hx Obtained From: Patient Hx Last Menstrual Period: hysterectomy Onset/Duration: Gradual Onset Timing: Constant Associated Signs & Symptoms: Positive: Cough. Negative: Chest Pain, Fever, SOB , Wheezing - Allergy/Home Medications Allergies/Adverse Reactions: Allergies Allergy/AdvReac Type Severity Reaction Status Date / Time IVP dye Allergy Severe Dizziness Uncoded 03/17/18 19:27 Home Medications: Home Medications metFORMIN* [Glucophage 500 MG TAB *] 500 mg PO DAILY 03/17/18 [History Confirmed 03/17/18] PMH/Surg Hx/FS Hx/Imm Hx Endocrine History: Diabetes, Thyroid Disease, Dyslipidemia Cardiovascular History: Hypertension Respiratory History: Asthma GI/ History: Gastroesophageal Reflux - Surgical History Surgical History: Yes Surgery Procedure, Year, and Place: cholecystectomy, hysterectomy, ,. STENT PLACEMENT FOR KIDNEY STONES - Family History Known Family History: Positive: Hypertension, Diabetes - Social History Occupation: Disabled Alcohol Use: Occasionally Substance Use Type: None Smoking Status (MU): Never Smoked Tobacco - Immunization History Most Recent Tetanus Shot: 2017 Vaccination Up to Date: Yes Review of Systems All Other Systems Reviewed And Are Negative: Yes Constitutional: Positive: Negative Skin: Positive: Negative Eyes: Positive: Negative ENT: Positive: Negative Respiratory: Positive: Cough Cardiovascular: Positive: Negative Gastrointestinal: Positive: Negative Genitourinary: Positive: Negative Motor: Positive: Negative Neurovascular: Positive: Negative Musculoskeletal: Positive: Negative Neurological: Positive: Negative Psychological: Positive: Negative Is Patient Immunocompromised?: No Physical Exam Triage Information Reviewed: Yes Appearance: Well-Appearing Vital Signs Reviewed: Yes Eyes: Positive: Conjunctiva Clear ENT: Positive: Pharynx normal, TMs normal. Negative: Nasal congestion, Nasal drainage Neck: Positive: Supple, Nontender, No Lymphadenopathy Respiratory: Positive: Lungs clear, No respiratory distress, Decreased breath sounds, Other: - fREQUENT CONGESTED COUGH Cardiovascular: Positive: RRR, No Murmur Abdomen Description: Positive: Nontender, No Organomegaly, Soft Bowel Sounds: Positive: Present Musculoskeletal: Positive: ROM Intact Neurological: Positive: Alert Psychological: Positive: Age Appropriate Behavior Skin Exam: Normal Course/Dx - Course Course Of Treatment: NON TOXIC, NOT HYPOXIC, NO CONCERN FOR PNEUMONIA. - Differential Dx - Multi-Symptom Provider Diagnoses: BRONCHITIS. ASTHMA FLARE Discharge - Sign-Out/Discharge Documenting (check all that apply): Patient Departure All imaging exams completed and their final reports reviewed: No Studies - Discharge Plan Condition: Stable Disposition: HOME Prescriptions: predniSONE TAB* [Deltasone 20 MG TAB*] 40 mg PO DAILY 3 Days #6 tab Patient Education Materials: Acute Bronchitis (ED), Asthma (ED) Referrals: Sandhya Dumont MD [Primary Care Provider] - 5 Days Additional Instructions: USE ALBUTEROL INHALER 2 PUFFS EVERY 6 HOURS - Billing Disposition and Condition Condition: STABLE Disposition: Home
== END 2018-03-17 19:42 | disposition home or self-care (01) ==
LOC: UCCORT 19:11
DX: J45.909 Unspecified asthma, uncomplicated (principal); E11.9 Type 2 diabetes mellitus without complications; I10 Essential (primary) hypertension
CPT/HCPCS: 99212; G0463; J7512

== ENCOUNTER 2018-09-12 07:58 | Emergency (ER) | payer OTHER ==
[2018-09-12 08:09] VITALS: BP 146/79
--- NOTE | 2018-09-12 08:20 | UC ---
Eye Complaint HPI - HPI Summary HPI Summary: 58-year-old woman comes in with a chief complaint of right eye crusting and drainage. Started last day or 2. She's had upper respiratory tract infection symptoms for about a week which have been improving. Does not wear contacts. No complaint of any trauma to the eye. The discharge gets better when she cleans it off. They gets worse she doesn't clean and off. - History of Current Complaint Chief Complaint: UCEye Stated Complaint: EYE ISSUES Time Seen by Provider: 09/12/18 08:05 Hx Last Menstrual Period: hysterectomy Pain Intensity: 0 - Allergies/Home Medications Allergies/Adverse Reactions: Allergies Allergy/AdvReac Type Severity Reaction Status Date / Time IVP dye Allergy Severe Dizziness Uncoded 09/12/18 08:09 PMH/Surg Hx/FS Hx/Imm Hx Previously Healthy: Yes Endocrine History: Diabetes, Hypothyroidism, Dyslipidemia Cardiovascular History: Hypertension - Surgical History Surgical History: Yes Surgery Procedure, Year, and Place: cholecystectomy, hysterectomy, ,. STENT PLACEMENT FOR KIDNEY STONES - Family History Known Family History: Positive: Hypertension, Diabetes - Social History Alcohol Use: None Substance Use Type: None Smoking Status (MU): Never Smoked Tobacco - Immunization History Most Recent Tetanus Shot: 2017 Vaccination Up to Date: Yes Review of Systems All Other Systems Reviewed And Are Negative: Yes Constitutional: Positive: Negative Skin: Positive: Negative Eyes: Positive: Drainage, Eye Redness ENT: Positive: Nasal Discharge Respiratory: Positive: Negative Cardiovascular: Positive: Negative Gastrointestinal: Positive: Negative Motor: Positive: Negative Neurovascular: Positive: Negative Musculoskeletal: Positive: Negative Neurological: Positive: Negative Psychological: Positive: Negative Is Patient Immunocompromised?: No Physical Exam Triage Information Reviewed: Yes Appearance: Well-Appearing, No Pain Distress, Well-Nourished Vital Signs: Initial Vital Signs Temp 98.3 F 09/12/18 08:04 Pulse 72 09/12/18 08:04 Resp 16 09/12/18 08:04 BP 146/79 09/12/18 08:04 Pulse Ox 100 09/12/18 08:04 Vital Signs Reviewed: Yes Eyes: Positive: Conjunctiva Inflamed - rt, Discharge - rt ENT: Positive: Pharynx normal, TMs normal Neck: Positive: Supple, Nontender Respiratory: Positive: Lungs clear, Normal breath sounds, No respiratory distress Cardiovascular: Positive: RRR Musculoskeletal Exam: Normal Musculoskeletal: Positive: Strength Intact, ROM Intact Neurological: Positive: Alert, Muscle Tone Normal Psychological: Positive: Normal Response To Family, Age Appropriate Behavior Skin Exam: Normal Eye Complaint Course/Dx - Differential Dx/Diagnosis Provider Diagnosis: Conjunctivitis Discharge - Sign-Out/Discharge Documenting (check all that apply): Patient Departure All imaging exams completed and their final reports reviewed: No Studies - Discharge Plan Condition: Stable Disposition: HOME Prescriptions: Tobramycin 0.3% OPHTH.TIM* 1 drop RIGHT EYE Q4H #1 btl Patient Education Materials: Conjunctivitis (ED) Referrals: Sandhya Dumont MD [Primary Care Provider] - Additional Instructions: FOLLOW UP WITH YOUR DOCTOR IF NOT COMPLETELY IMPROVED. GET RECHECKED SOONER IF YOUR CONDITION WORSENS OR ANY QUESTIONS OR CONCERNS. - Billing Disposition and Condition Condition: STABLE Disposition: Home
== END 2018-09-12 08:22 | disposition home or self-care (01) ==
LOC: UCEAST 07:58
DX: H10.9 Unspecified conjunctivitis (principal); E11.9 Type 2 diabetes mellitus without complications; I10 Essential (primary) hypertension; Z91.041 Radiographic dye allergy status
CPT/HCPCS: 99212; G0463

== ENCOUNTER 2018-10-27 17:38 | Emergency (ER) | payer OTHER ==
--- OUTSIDE RECORDS SUMMARY | 2018-10-27 17:48 | XMS REPORT | Continuity of Care Document ---
:1960 External Reference #:[id number] Author Name Sandhya Dumont M.D. Address [address] [facility] [place] [address] Care Team Providers Name Role Phone Sandhya Dumont M.D. Care Team Information Continuous Improvement Director Unavailable Sandhya Dumont M.D. Primary Care Physician Unavailable Payers Date Identification Numbers Payment Provider Subscriber Effective: 2014 Policy Number: [id number] [facility] PayID: [id number] [address] [place] [phone] Problems Active Problems Provider Date Hypothyroidism Sandhya Dumont M.D. Onset: 04/02/2014 Hyperlipidemia Sandhya Dumont M.D. Onset: 04/02/2014 Benign essential hypertension Sandhya Dumont M.D. Onset: 04/02/2014 Gastroesophageal reflux disease Sandhya Dumont M.D. Onset: 04/02/2014 Asthma without status asthmaticus Sandhya Dumont M.D. Onset: 04/02/2014 Kidney stone Sandhya Dumont M.D. Onset: 03/25/2015 Type 2 diabetes mellitus Sandhya Dumont M.D. Onset: 04/26/2018 Allergic rhinitis Sandhya Dumont M.D. Onset: 04/26/2018 Mild intermittent asthma Sandhya Dumont M.D. Onset: 04/26/2018 Resolved Problems Acute bronchitis Jarad Almaguer M.D. Onset: 12/30/2017 Resolved: 04/26/2018 Impaired fasting glycaemia Sandhya Dumont M.D. Onset: 03/25/2015 Resolved: 04/26/2018 Family History Date Family Member(s) Observation Comments Father due to Surgery () Mother Diabetes Mellitus, II Mother due to Congestive Heart Failure () - 81 Mother Hypertension First Son due to Asthma () Social History Type Date Description Comments Sex Unknown Lives With Roommate Tobacco Use Start: Unknown Never Smoked Cigarettes ETOH Use Rare Tobacco Use Start: Unknown Patient has never smoked Smoking Status Reviewed: 07/26/18 Patient has never smoked Exercise Type/Frequency Exercises sporadically Allergies, Adverse Reactions, Alerts Active Allergies Reaction Severity Comments Date IVP Dye Nausea and Vomiting Severe 04/02/2014 Tamsulosin DIZZY, SOB 05/02/2017 Inactive Allergies NKDA 05/14/2014 Medications Active Medications SIG Qnty Indications Ordering Date Provider Orphenadrine Citrate Take 1 tablet 30tabs M54.2 Gianni Adamson, 2018 ER every 12 hours M.D. 100mg Tablets ER for muscle pain. 12HR Hydrocortisone apply twice a day 2tubes L23.89 Gianni Adamson, 08/08/2018 Intensive Healing for 2 weeks or M.D. 1% until resolution Cream of the irritaton. Cool Mist Humidifier dispense #1 for 1units Lorraine 05/30/2018 2 Gallon home use CHELSI Peck 2Gallon [facility] Claritin 1 by mouth every 90tabs J30.9 Holly CNatanael 05/18/2018 10mg Tablets day ALINA Castrejon Flonase Allergy 1 spray to each 29.7ml J30.9 Holly Capellan 03/20/2018 Relief nostril every day ALINA Castrejon 50mcg/Act Suspension Metformin HCL 1 by mouth every 90tabs Holly Capellan 03/14/2018 500mg day ALINA Castrejon Tablets Hydrocortisone Plus apply sparingly 28.400gm Lorraine 06/30/2017 1% to affected areas CHELSI Peck Cream of skin Metoprolol Succinate take one tablet 90tabs J06.9 Holly Capellan 06/30/2017 ER by mouth every ALINA Castrejon 200mg Tablets ER day 24HR Freestyle Lite Blood test 3 times a 1units Lorraine 10/02/2015 Glucose Monitoring day or as CHELSI Peck System directed Device dx:r73.09 Freestyle Lite Test test 3 times a 100units Lorraine 10/02/2015 day or as CHELSI Peck Strips directed dx:r73.09 Freestyle Lancets test 3 times a 100units [place] 10/02/[facility] CHELSI Peck directed dx:r73.09 Aerochamber Plus Use with inhaler 1units Alexandra Rock NP 11/06/2014 Misc Ventolin HFA 2 puffs every 4 24gm J45.909 Holly Capellan 04/02/2014 hours as needed ALINA Castrejon 108(90Base) mcg/Act Aerosol Simvastatin take one tablet 30tabs [facility], 04/02/2014 20mg by mouth every M.D. Tablets day Omeprazole take one capsule 90caps K21.9 Holly CNatanael 04/02/2014 20mg by mouth every ALINA Castrejon Capsules DR day Levothyroxine Sodium take one tablet 90tabs Holly Capellan 04/02/2014 by mouth every ALINA Castrejon 75mcg Tablets day History Medications Lisinopril Start 1 tablet 30tabs I10 Gianni A. 08/08/2018 - 5mg Tablets at bedtime. Nany Adamson 09/20/2018 Zyrtec Allergy 1 po daily 90caps J30.9 [place] 03/20/[address] - [address] [facility], [facility] 05/30/2018 Capsules [place] [address] [facility], 02/16/2018 - 5% Solution M.D. 02/16/2018 Ketotifen Fumarate [place] 02/16/2018 - 0.025% [facility] 04/26/2018 Solution Patanol 1 drop in both 5ml [place] 01/25/2018 - 0.1% Solution eyes twice a [facility] 02/16/2018 day in spring and fall allergy season Breo Ellipta 1 inhalation J20.9 [place] 01/17/2018 - 100-25mcg/Inh once per day, [facility] 02/28/2018 Aerosol rinse, samples Azithromycin take 2 tablets 6tabs Jarad FNatanael 12/30/2017 - 250mg Tablets by mouth on day Nany Almaguer 01/15/2018 1 then 1 tablet on days 2 through 5 Methylprednisolone take as 21units Jarad FNatanael 12/30/2017 - 4mg TBPK directed Nany Almaguer 01/09/2018 Cyclobenzaprine HCL 1-2 by mouth 3 45tabs M54.2 Holly Capellan 12/27/2017 - 5mg times per day ALINA Castrejon 01/17/2018 Tablets as needed for muscle spasm Physical Therapy please diagnose M54.2 Holly StantonNatanael 12/27/2017 - and treat for ALINA Castrejon 05/30/2018 neck and upper back pain Claritin 1 by mouth 90tabs J30.9 Mouna Johnson 10/05/2017 - 10mg Tablets every day ALINA Pérez 02/28/2018 Fluticasone Propionate 1 sprays each 1bottle H68.001 [place] 10/05/2017 - nostril daily [facility] 12/27/2017 50mcg/Act Suspension Saline Nasal [place] 1-2 sprays 44ml H68.001 [place] 10/05/2017 - 0.65% twice daily [facility] 12/27/2017 Solution each nostril Aquaphor apply to 50gm [place] 06/30/2017 - Ointment affected [facility] 12/27/2017 excoriated skin 2-4 times daily to provide a barrier, moisture Benzonatate 1 tab q6 hours 30caps Sandhya Dumont 06/20/2017 - 100mg Capsules as needed cough M.D. 06/30/2017 Loperamide HCL 2 tabs at onset 30caps R19.7 Sandhya Dumont, 08/31/2016 - 2mg Capsules of diarrhea M.D. 01/11/2017 and can repeat after each loose stool Max 8 tabs daily Sertraline HCL 1 by mouth 30tabs F43.0 [place]raine 01/13/2016 - 25mg Tablets every day [facility] 03/08/2016 Andry Contour Next Ez test 3 times a 100units [place] 09/22/2015 - Lancets day or as [facility] 10/02/2015 directed dx:r73.09 Andry Contour Next Ez test 3 times a 100units [place] 09/22/2015 - Blood Glucose Test week or as [facility] 10/02/2015 Strips directed r73.09 Hydrocodone-Acetaminoph 1-2 by mouth 30tabs [place] 07/10/2015 - en every q6hr as [facility] 01/12/2017 5-325mg Tablets needed pain Hydrocodone-Acetaminoph 1-2 by mouth 30tabs Lauren 08/12/2014 - en every q6hr as Dat, 07/10/2015 5-325mg Tablets needed pain Afnp-C Naproxen 1 po bid prn 40tabs 719.46 [place] 08/06/2014 - 500mg Tablets pain Liv, [facility] 07/10/2015 Physical Therapy please 719.46 [place] 08/06/2014 - eval/treat Liv, [facility] 10/06/2014 right knee, quad tendon pain Meloxicam 1 by mouth 30tabs 719.46 Jamal Goodrich M.D. 07/25/2014 - 15mg Tablets every day 10/06/2014 Naproxen 1 by mouth 60tabs 729.5 Alexandra Rock, 07/03/2014 - 500mg Tablets twice a day [employer] 07/25/2014 with food Mometasone Furoate 1 apply to 30g 692.9 Sandhya Vermilion, 05/14/2014 - 0.1% affected area Nany 07/10/2015 Ointment twice a day for up to 7 days Cephalexin 1 by mouth qid [facility] 04/02/2014 - 500mg Capsules x10 days [facility] 05/14/2014 [place] Metoprolol Succinate ER take one tablet 30tabs J06.9 Lynda Mancuso, 2013 - by mouth every [employer] 06/30/2017 100mg Tablets ER 24HR day Naproxen 1 by mouth 60tabs Alber Manley - 500mg Tablets twice a day MD Melita 12/27/2017 with food Immunizations CPT Code Status Date Vaccine Lot # [id number] Given 01/17/2018 Influenza Vac, Quadrivalent, Slit Virus, Im [id number] Given 08/03/2016 Tetanus And Diptheria Adult Preservative Free [id number] >7Yrs [id number] Given 03/09/2016 Influenza Vac, Quadrivalent, Slit Virus, Im [id number] Given 02/27/2015 Influenza Vac, Quadrivalent, Slit Virus, Im [id number] Vital Signs Date Vital Result Comment 10/02/2018 9:35am BP Systolic 120 mmHg BP Diastolic 80 mmHg Heart Rate 60 /min Body Temperature 97.7 F Respiratory Rate 16 /min Height 60 inches 5'0" Weight 196.00 lb BMI (Body Mass Index) 38.3 kg/m2 09/20/2018 9:13am BP Systolic 122 mmHg BP Diastolic 80 mmHg Heart Rate 70 /min Body Temperature 97.7 F Height 60 inches 5'0" Weight 196.00 lb BMI (Body Mass Index) 38.3 kg/m2 09/14/2018 3:25pm BP Systolic 142 mmHg BP Diastolic 80 mmHg Heart Rate 80 /min Body Temperature 99.8 F Respiratory Rate 16 /min Height 60 inches 5'0" Weight 200.00 lb BMI (Body Mass Index) 39.1 kg/m2 08/08/2018 8:51am BP Systolic 144 mmHg BP Diastolic 70 mmHg Heart Rate 64 /min Body Temperature 97.3 F Respiratory Rate 16 /min Height 60 inches 5'0" Weight 199.00 lb BMI (Body Mass Index) 38.9 kg/m2 07/31/2018 3:09pm BP Systolic 160 mmHg BP Diastolic 100 mmHg Heart Rate 84 /min Body Temperature 97.9 F Respiratory Rate 16 /min O2 % BldC Oximetry 99 % Height 60 inches 5'0" Weight 195.00 lb BMI (Body Mass Index) 38.1 kg/m2 07/26/2018 4:13pm BP Systolic 158 mmHg BP Diastolic 100 mmHg Heart Rate 80 /min Body Temperature 98.5 F Height 60 inches 5'0" Weight 195.00 lb BMI (Body Mass Index) 38.1 kg/m2 05/30/2018 11:27am BP Systolic 144 mmHg BP Diastolic 92 mmHg Heart Rate 86 /min Body Temperature 97.3 F Respiratory Rate 12 /min Height 60 inches 5'0" Weight 195.00 lb BMI (Body Mass Index) 38.1 kg/m2 04/26/2018 12:12pm BP Systolic 122 mmHg BP Diastolic 70 mmHg Heart Rate 72 /min Body Temperature 98.3 F Respiratory Rate 16 /min Weight 198.00 lb 03/20/2018 10:48am BP Systolic 142 mmHg BP Diastolic 86 mmHg Heart Rate 72 /min Body Temperature 97.9 F Respiratory Rate 16 /min O2 % BldC Oximetry 97 % Height 59 inches 4'11" Weight 196.00 lb BMI (Body Mass Index) 39.6 kg/m2 02/28/2018 9:01am BP Systolic 140 mmHg BP Diastolic 88 mmHg Heart Rate 78 /min Body Temperature 97.9 F Respiratory Rate 16 /min Height 59 inches 4'11" Weight 194.00 lb BMI (Body Mass Index) 39.2 kg/m2 01/17/2018 9:27am BP Systolic 132 mmHg BP Diastolic 80 mmHg Heart Rate 60 /min Body Temperature 98.0 F Respiratory Rate 16 /min Height 59 inches 4'11" Weight 193.00 lb BMI (Body Mass Index) 39.0 kg/m2 12/30/2017 12:43pm BP Systolic 142 mmHg BP Diastolic 80 mmHg Heart Rate 78 /min Body Temperature 97.9 F Respiratory Rate 16 /min O2 % BldC Oximetry 97 % 12/27/2017 2:03pm BP Systolic 150 mmHg BP Diastolic 78 mmHg Heart Rate 80 /min Body Temperature 97.0 F Respiratory Rate 20 /min Weight 191.12 lb 10/05/2017 9:10am BP Systolic 130 mmHg BP Diastolic 82 mmHg Heart Rate 66 /min Body Temperature 97.7 F Height 60 inches 5'0" Weight 193.00 lb BMI (Body Mass Index) 37.7 kg/m2 08/23/2017 11:08am BP Systolic 148 mmHg BP Diastolic 88 mmHg Heart Rate 72 /min Body Temperature 98.6 F Respiratory Rate 16 /min Height 60 inches 5'0" Weight 196.00 lb BMI (Body Mass Index) 38.3 kg/m2 06/30/2017 9:38am BP Systolic 162 mmHg BP Diastolic 92 mmHg Heart Rate 80 /min Body Temperature 97.7 F Height 60 inches 5'0" Weight 194.00 lb BMI (Body Mass Index) 37.9 kg/m2 06/12/2017 3:54pm BP Systolic 168 mmHg BP Diastolic 92 mmHg Heart Rate 72 /min Body Temperature 97.3 F Respiratory Rate 18 /min Height 60 inches 5'0" Weight 194.00 lb BMI (Body Mass Index) 37.9 kg/m2 05/02/2017 2:15pm BP Systolic 142 mmHg BP Diastolic 90 mmHg Heart Rate 72 /min Body Temperature 97.7 F Height 60 inches 5'0" Weight 194.12 lb BMI (Body Mass Index) 37.9 kg/m2 01/12/2017 10:02am BP Systolic 102 mmHg BP Diastolic 64 mmHg Heart Rate 78 /min Body Temperature 96.6 F Height 60 inches 5'0" Weight 188.25 lb BMI (Body Mass Index) 36.8 kg/m2 12/06/2016 10:45am BP Systolic 120 mmHg BP Diastolic 80 mmHg Heart Rate 60 /min Body Temperature 98.0 F Respiratory Rate 18 /min Height 60 inches 5'0" Weight 188.00 lb BMI (Body Mass Index) 36.7 kg/m2 08/31/2016 11:20am BP Systolic 138 mmHg BP Diastolic 80 mmHg Heart Rate 72 /min Body Temperature 99.0 F Respiratory Rate 16 /min Height 60 inches 5'0" Weight 183.50 lb BMI (Body Mass Index) 35.8 kg/m2 07/08/2016 10:46am BP Systolic 136 mmHg BP Diastolic 80 mmHg Heart Rate 78 /min Body Temperature 98.1 F Respiratory Rate 16 /min Height 60 inches 5'0" Weight 181.00 lb BMI (Body Mass Index) 35.3 kg/m2 03/09/2016 10:10am BP Systolic 134 mmHg BP Diastolic 86 mmHg Heart Rate 84 /min Body Temperature 96.8 F Height 60 inches 5'0" Weight 182.50 lb BMI (Body Mass Index) 35.6 kg/m2 01/13/2016 1:16pm BP Systolic 122 mmHg BP Diastolic 80 mmHg Heart Rate 76 /min Body Temperature 97.7 F Height 60 inches 5'0" Weight 183.38 lb BMI (Body Mass Index) 35.8 kg/m2 09/02/2015 12:51pm BP Systolic 110 mmHg BP Diastolic 80 mmHg Heart Rate 64 /min Body Temperature 98.3 F Respiratory Rate 18 /min Height 60 inches 5'0" 07/10/2015 11:43am BP Systolic 136 mmHg BP Diastolic 70 mmHg Heart Rate 72 /min Body Temperature 97.9 F Respiratory Rate 16 /min Height 60 inches 5'0" Weight 199.50 lb BMI (Body Mass Index) 39.0 kg/m2 12/04/2014 10:15am BP Systolic 110 mmHg BP Diastolic 80 mmHg Heart Rate 68 /min Body Temperature 98.2 F Respiratory Rate 18 /min Height 60 inches 5'0" Weight 195.00 lb BMI (Body Mass Index) 38.1 kg/m2 11/28/2014 10:07am BP Systolic 134 mmHg BP Diastolic 88 mmHg Heart Rate 66 /min Body Temperature 98.3 F Respiratory Rate 16 /min Height 59 inches 4'11" Weight 198.50 lb BMI (Body Mass Index) 40.1 kg/m2 10/06/2014 10:13am BP Systolic 122 mmHg BP Diastolic 78 mmHg Heart Rate 64 /min Body Temperature 98.2 F Respiratory Rate 18 /min Height 59 inches 4'11" Weight 193.00 lb BMI (Body Mass Index) 39.0 kg/m2 08/12/2014 1:07pm BP Systolic 124 mmHg BP Diastolic 80 mmHg Heart Rate 60 /min Body Temperature 97.4 F Respiratory Rate 18 /min Height 59 inches 4'11" Weight 191.00 lb BMI (Body Mass Index) 38.6 kg/m2 08/06/2014 3:39pm BP Systolic 124 mmHg BP Diastolic 78 mmHg Heart Rate 80 /min Body Temperature 98.3 F Respiratory Rate 16 /min Height 59 inches 4'11" Weight 190.00 lb BMI (Body Mass Index) 38.4 kg/m2 07/25/2014 3:41pm BP Systolic 122 mmHg BP Diastolic 78 mmHg Heart Rate 84 /min Body Temperature 99.7 F Respiratory Rate 16 /min Height 59 inches 4'11" Weight 190.00 lb BMI (Body Mass Index) 38.4 kg/m2 07/03/2014 1:34pm BP Systolic 124 mmHg BP Diastolic 80 mmHg Heart Rate 84 /min Body Temperature 97.9 F Respiratory Rate 16 /min Height 59 inches 4'11" Weight 190.38 lb BMI (Body Mass Index) 38.4 kg/m2 05/14/2014 10:54am BP Systolic 130 mmHg BP Diastolic 80 mmHg Heart Rate 76 /min Body Temperature 98.5 F Respiratory Rate 16 /min Height 59 inches 4'11" Weight 193.00 lb BMI (Body Mass Index) 39.0 kg/m2 04/02/2014 10:37am BP Systolic 148 mmHg BP Diastolic 86 mmHg Heart Rate 78 /min Body Temperature 98.1 F Respiratory Rate 16 /min Height 59 inches 4'11" Weight 191.25 lb BMI (Body Mass Index) 38.6 kg/m2 Results Test Date Facility Test Result H/L Range Note Laboratory test 09/20/2018 [facility]) Vitamin B-12 478 pg/mL 230-1050 finding Laboratory test 07/26/2018 [facility] Hemoglobin A1c 5.9 % High 4.1- 5.7 finding (607)- - (Fma) Flu A&B (Fma) 07/26/2018 [facility] Influenza A neg (607)- - Influenza B neg Urine Culture And 05/30/2018 [facility] Urine Culture SEE RESULT 1 Sensitivities BELOW Ua - Micro (Fma) 05/30/2018 [facility] Appearance CLEAR (607)- - Color YELLOW Glucose, Urine (Fma/CMC/CTX) NEG Bilirubin NEG Ketones NEG SP Grav 1.010 Blood NEG PH 6.5 Protein NEG Urobil 0.2 Nitrite NEG Leukocytes (Fma/CMC/Centrex) TRACE # Hyaline - /Lpf Granular - /Lpf WBC (a,Centrex) 0-2 # RBC - Mucus - /Lpf Epith RARE /Lpf # Bacteria RARE /Hpf # Amorphous - /Lpf Crystals, Fluid (Fma/CMC/CTX) - Z#Comments - Laboratory test 04/26/2018 [facility] Hemoglobin A1c 6.1% % High 4.1 -5.7 finding (607)- - (a) CBC Auto Diff 04/13/2018 [facility] White Blood 6.1 N 3.5-10.8 Count 10^3/uL Red Blood Count 4.52 10^6/uL N 4.00-5.40 Hemoglobin 14.1 g/dL N 12.0-16.0 Hematocrit 41 % N 35-47 Mean Corpuscular Volume 91 fL N 80-97 Mean Corpuscular Hemoglobin 31 pg N 27-31 Mean Corpuscular HGB Conc 34 g/dL N 31-36 Red Cell Distribution Width 13 % N 10.5-15 Platelet Count 212 10^3/uL N 150-450 Mean Platelet Volume 7.4 fL N 7.4-10.4 Abs Neutrophils 3.3 10^3/uL N 1.5-7.7 Abs Lymphocytes 2.1 10^3/uL N 1.0-4.8 Abs Monocytes 0.4 10^3/uL N 0-0.8 Abs Eosinophils 0.2 10^3/uL N 0-0.6 Abs Basophils 0 10^3/uL N 0-0.2 Abs Nucleated RBC 0 10^3/uL Granulocyte % 54.9 % Lymphocyte % 33.7 % Monocyte % 7.1 % Eosinophil % 3.6 % Basophil % 0.7 % Nucleated Red Blood Cells % 0 Laboratory test finding 04/13/2018 [facility] LDH 165 U/L N 140-271 Comp Metabolic Panel 04/13/2018 [facility] Sodium 140 mmol/L N 135-145 Potassium 4.2 mmol/L N 3.5-5.0 Chloride 105 mmol/L N 101-111 Co2 Carbon Dioxide 28 mmol/L N 22-32 Anion Gap 7 mmol/L N 2-11 Glucose 124 mg/dL High 70-100 Blood Urea Nitrogen 22 mg/dL N 6-24 Creatinine 0.87 mg/dL N 0.51-0.95 BUN/Creatinine Ratio 25.3 High 8-20 Calcium 9.5 mg/dL N 8.6-10.3 Total Protein 7.6 g/dL N 6.4-8.9 Albumin 4.3 g/dL N 3.2-5.2 Globulin 3.3 g/dL N 2-4 Albumin/Globulin Ratio 1.3 N 1-3 Total Bilirubin 0.50 mg/dL N 0.2-1.0 Alkaline Phosphatase 93 U/L N 34-104 Alt 26 U/L N 7-52 Ast 21 U/L N 13-39 Egfr Non- 66.9 >60 Egfr 80.9 >60 2 Laboratory test 04/13/2018 [facility] Hepatitis B Nonreactive Nonreactive finding Surface Ag Hepatitis B Flower AB 04/13/2018 [facility] Hepatitis B Not Immune Abnormal Immune Titer Surface AB Hep B Surf AB Level < 3.10 mIU/mL >12 Laboratory test 04/13/2018 [facility] Hepatitis B Core Negative Negative 3 finding Total Ab Laboratory test 02/28/2018 [facility] Hemoglobin A1c 6.6 % % High 4.1-5.7 finding (607)- - (Fma) Laboratory test 02/28/2018 [facility]) TSH 1.36 mIU/L 0.50-6.00 finding Free T4 1.42 ng/dL 0.75-1.54 Ferritin 165 ng/mL 15-200 CBC Electronic a 02/28/2018 [facility](a) WBC 6.4 x10^3/UL 4.0- 10.0 RBC 4.42 x10^6/UL 3.93-6.00 HGB 13.6 g/dL 12.0-17.0 HCT 41 % 35-50 MCV 91.6 fL 80.0-95.0 MCH 30.8 pg 25.6-32.2 MCHC 33.6 g/dL 32.2-36.0 RDW-CV 12.8 % 11.6-14.4 PLT 154 x10^3/UL Low 163-400 4 MPV 8.7 fL Low 9.4-12.4 Mayra# 3.37 x10^3/UL 1.56-6.13 Lymph# 2.31 x10^3/UL 1.18-3.74 [place]# 0.55 x10^3/UL 0.24-0.82 Eos # 0.2 x10^3/UL 0.0-0.5 Baso # 0.03 x10^3/UL 0.01-0.08 [place]% 52.4 % 34.0-70.0 Lymph % 35.9 % 20.0-52.0 [place]% 8.6 % 5.0-12.0 Eos% 2.6 % 0.7-7.0 Baso% 0.5 % 0.1-1.2 Laboratory test 02/28/2018 [facility](fma) Glucose, Serum 136 mg/dL High 70-105 5 finding Comprehensive 01/17/2018 Donovan Becca(fma) Sodium 134 mEq/L 134-149 Metabolic Prof Potassium 3.9 mEq/L 3.6-5.5 Chloride 102 mEq/L 94-112 Carbon Dioxide 28 mEq/L 21-32 Glucose 126 mg/dL High 70-105 6 BUN 15 mg/dL 6-26 Creatinine 0.8 mg/dL [...] GFR >60 ml/min/1.73m^ >=60 Lipid Profile 01/17/2018 Donovan Hudson(fma) Cholesterol 157 mg/dL 120- 200 Triglycerides 160 mg/dL 30-200 HDL Cholesterol 50 mg/dL 30-85 LDL (Calculated) 75 CALC 0-129 VLDL Cholesterol 32 mg/dL 0-50 HDL Risk Factor 3.1 CALC 0.0-4.4 Laboratory test finding 01/17/2018 [facility](a) TSH 0.77 mIU/L 0.50-6.00 CBC Electronic Fma 01/17/2018 [facility](a) WBC 5.2 x10^3/UL 4.0- 10.0 RBC 4.39 x10^6/UL 3.93-6.00 HGB 13.4 g/dL 12.0-17.0 HCT 39 % 35-50 MCV 88.6 fL 80.0-95.0 MCH 30.5 pg 25.6-32.2 MCHC 34.4 g/dL 32.2-36.0 RDW-CV 12.8 % 11.6-14.4 PLT 160 x10^3/UL Low 163-400 MPV 9.2 fL Low 9.4-12.4 Mayra# 2.54 x10^3/UL 1.56-6.13 Lymph# 2.10 x10^3/UL 1.18-3.74 [place]# 0.35 x10^3/UL 0.24-0.82 Eos # 0.2 x10^3/UL 0.0-0.5 Baso # 0.04 x10^3/UL 0.01-0.08 Mayra% 48.7 % 34.0-70.0 Lymph % 40.3 % 20.0-52.0 [place]% 6.7 % 5.0-12.0 Eos% 3.5 % 0.7-7.0 Baso% 0.8 % 0.1-1.2 Laboratory test 01/17/2018 [employer] [facility] SEE ATTACHED finding [address] [place] [address] [phone] Stone Analysis 12/27/2017 [facility] Kidney Stone Kidney Source Kidney Stone 1st Constituent See Comment 7 Laboratory test 12/27/2017 [facility] Surgical SEE RESULT 8 finding Pathology BELOW Laboratory test 10/05/2017 [facility] Hemoglobin A1c 5.9 % High 4.1- 5.7 finding (607)- - (a) Rapid Influenza 06/13/2017 [facility] Influenza A NEGATIVE Negative 9 A & B Molecular Molecular Influenza B Molecular POSITIVE Abnormal Negative Ua - Micro (Fma) 05/02/2017 [facility] Appearance clear (607)- - Color yellow Glucose, Urine (Fma/CMC/CTX) neg Bilirubin neg Ketones neg SP Grav 1.010 Blood trace-intact # PH 6.0 Protein neg Urobil 0.2 Nitrite neg Leukocytes (Fma/CMC/[facility]rex) trace # Hyaline - /Lpf Granular - /Lpf WBC (Fma,[facility]rex) 2-3 RBC 1-2 Mucus 0 /Lpf Epith rare /Lpf Bacteria rare /Hpf Amorphous 0 /Lpf Crystals, Fluid (Fma/CMC/CTX) 0 Z#Comments 0 CBC Auto Diff 04/27/2017 [facility] White Blood Count 10.6 10^3/uL N 3.5-10.8 Red Blood Count 4.30 10^6/uL N 4.0-5.4 Hemoglobin 13.0 g/dL N 12.0-16.0 Hematocrit 38 % N 35-47 Mean Corpuscular Volume 89 fL N 80-97 Mean Corpuscular Hemoglobin 30 pg N 27-31 Mean Corpuscular HGB Conc 34 g/dL N 31-36 Red Cell Distribution Width 13 % N 10.5-15 Platelet Count 148 10^3/uL Low 150-450 Mean Platelet Volume 7 um3 Low 7.4-10.4 Abs Neutrophils 9.0 10^3/uL High 1.5-7.7 Abs Lymphocytes 1.2 10^3/uL N 1.0-4.8 Abs Monocytes 0.3 10^3/uL N 0-0.8 Abs Eosinophils 0 10^3/uL N 0-0.6 Abs Basophils 0.1 10^3/uL N 0-0.2 Abs Nucleated RBC 0 10^3/uL Granulocyte % 85.0 % High 38-83 Lymphocyte % 11.2 % Low 25-47 Monocyte % 3.1 % N 1-9 Eosinophil % 0.1 % N 0-6 Basophil % 0.6 % N 0-2 Nucleated Red Blood Cells % 0 Basic Metabolic Panel 04/27/2017 [facility] Sodium 138 mmol/L N 133-145 Potassium 3.8 mmol/L N 3.5-5.0 Chloride 105 mmol/L N 101-111 Co2 Carbon Dioxide 25 mmol/L N 22-32 Anion Gap 8 mmol/L N 2-11 Glucose 115 mg/dL High 70-100 Blood Urea Nitrogen 18 mg/dL N 6-24 Creatinine 0.93 mg/dL N 0.51-0.95 BUN/Creatinine Ratio 19.4 N 8-20 Calcium 9.5 mg/dL N 8.6-10.3 Egfr Non- 62.1 >60 Egfr 79.9 >60 10 Comprehensive Metabolic 01/03/2017 [facility](a) Sodium 144 mEq/L 134-149 Prof Potassium 4.7 mEq/L 3.6-5.5 Chloride 105 mEq/L 94-112 Carbon Dioxide 24 mEq/L 21-32 Glucose 137 mg/dL High 70-105 11 BUN 20 mg/dL 6-26 Creatinine 0.9 mg/dL [...] >=60 GFR >60 ml/min/1.73m^ >=60 Lipid Profile 01/03/2017 Donovan Hudson(a) Cholesterol 135 mg/dL 120- 200 Triglycerides 119 mg/dL 30-200 HDL Cholesterol 45 mg/dL 30-85 LDL (Calculated) 66 CALC 0-129 VLDL Cholesterol 24 mg/dL 0-50 HDL Risk Factor 3.0 CALC 0.0-4.4 Complete Blood Count 01/03/2017 Donovan Hudson(a) WBC 5.1 x10^3/UL 3.6 -9.6 RBC 4.28 x10^6/UL 3.90-5.70 HGB 13.1 g/dL 12.1-17.2 HCT 38 % 36-50 MCV 89.0 fL 82.2-97.4 MCH 30.5 pg 27.6-33.3 MCHC 34.3 g/dL 33.0-35.5 RDW 14.1 % High 11.6-13.7 PLT 209 x10^3/UL 150-400 MPV 6.6 fL Low 7.4-10.4 Gran # 2.6 x10^3/UL 1.5-7.2 Lymph# 2.2 x10^3/UL 0.7-4.9 [place]# 0.3 x10^3/UL 0.1-0.9 Gran % 50.2 % 42.2-75.2 Lymph % 42.9 % 20.5-51.1 [place]% 6.9 % 1.7-9.3 Laboratory test 01/03/2017 [facility](a) Free T4 1.18 ng/dL 0.75- 1.54 finding TSH 1.53 mIU/L 0.50-6.00 Laboratory test 01/03/2017 [facility] Hemoglobin A1c 5.8 % % High 4.1-5.7 finding (607)- - (a) Ua - Micro (a) 12/06/2016 [facility] Appearance CLEAR (607)- - Color YELLOW Glucose, Urine (Fma/CMC/CTX) NEG Bilirubin NEG Ketones NEG SP Grav 1.015 Blood TRACE-INTACT # PH 6.0 Protein NEG Urobil 0.2 Nitrite NEG Leukocytes (Fma/CMC/[facility]) MOD # Hyaline - /Lpf Granular - /Lpf WBC (a,[facility]) 15-20 # RBC 2-3 # Mucus - /Lpf Epith OCC /Lpf # Bacteria 1+ /Hpf # Amorphous - /Lpf Crystals, Fluid (Fma/CMC/CTX) - Z#Comments - Ict Hemoccult (Fma) 07/27/2016 [facility] Ict Hemoccult (1) 07/12/16 neg (607)- - Ict Hemoccult-(2) 07/13/16 neg Ict-Hemoccult (3) 07/15/16 neg Laboratory test finding 06/02/2016 [facility](a) TSH 0.93 mIU/L 0.50-6.00 Free T4 1.27 ng/dL 0.75-1.54 Comprehensive Metabolic 06/02/2016 [facility](fma) Sodium 143 mEq/L 134-149 Prof Potassium 4.8 mEq/L 3.6-5.5 Chloride 111 mEq/L 94-112 Carbon Dioxide 31 mEq/L 21-32 Glucose 126 mg/dL High 70-105 12 BUN 23 mg/dL 6-26 Creatinine 0.9 mg/dL [...] GFR >60 ml/min/1.73m^ >=60 Lipid Profile 06/02/2016 [facility](a) Cholesterol 150 mg/dL 120- 200 Triglycerides 133 mg/dL 30-200 HDL Cholesterol 42 mg/dL 30-85 LDL (Calculated) 81 CALC 0-129 VLDL Cholesterol 27 mg/dL 0-50 HDL Risk Factor 3.6 CALC 0.0-4.4 Complete Blood Count 06/02/2016 [facility](fma) WBC 5.2 x10^3/UL 3.6 -9.6 RBC 4.40 x10^6/UL 3.90-5.70 HGB 13.1 g/dL 12.1-17.2 HCT 39 % 36-50 MCV 90.0 fL 82.2-97.4 MCH 29.7 pg 27.6-33.3 MCHC 33.2 g/dL 33.0-35.5 RDW 13.2 % 11.6-13.7 PLT 148 x10^3/UL Low 150-400 13 MPV 7.2 fL Low 7.4-10.4 Gran # 2.9 x10^3/UL 1.5-7.2 Lymph# 2.1 x10^3/UL 0.7-4.9 [place]# 0.2 x10^3/UL 0.1-0.9 Gran % 53.6 % 42.2-75.2 Lymph % 41.1 % 20.5-51.1 [place]% 5.3 % 1.7-9.3 Laboratory test 06/02/2016 [facility] Hemoglobin A1c 5.6 % 4.1-5.7 finding (607)- - (Fma) Laboratory test 04/11/2016 [facility] Hemoglobin A1c 5.8 % High 4.1- 5.7 finding (607)- - (Fma) Laboratory test 01/13/2016 [facility] Hemoglobin A1c 5.8 % High 4.1- 5.7 finding (607)- - (a) Ua - Micro (Fma) 01/13/2016 [facility] Medicine Appearance clear (607)- - Color yellow Glucose, Urine (Fma/CMC/CTX) neg Bilirubin neg Ketones neg SP Grav 1.010 Blood moderate # PH 5.5 Protein neg Urobil 0.2 Nitrite neg Leukocytes (Fma/CMC/[facility]) neg Hyaline - /Lpf Granular - /Lpf WBC (Fma,[facility]) 0-1 # RBC 30-40 # Mucus (Fma/CBC/[facility]) small amount /Lpf # Epith few /Lpf # Bacteria rare /Hpf # Amorphous (Fma/CMC/[facility]) - /Lpf Crystals, Fluid (Fma/CMC/CTX) - Z#Comments - Toxassure(R) Select 01/13/2016 [facility] Report Summary FINAL 14 15 13 (MW) [address] [place] [address] (435)- - PDF . Laboratory test 01/13/2016 [facility] PDF [id number] SEE IMAGE finding [address] [place] [address] (607)- - Lipid Profile 10/26/2015 [facility](a) Cholesterol 134 mg/dL 120- 20 0 Triglycerides 127 mg/dL 30-200 HDL Cholesterol 42 mg/dL 30-85 LDL (Calculated) 67 CALC 0-129 VLDL Cholesterol 25 mg/dL 0-50 HDL Risk Factor 3.2 CALC 0.0-4.4 Comprehensive Metabolic 10/26/2015 [facility](a) Sodium 142 mEq/L 134-149 Prof Potassium 4.4 mEq/L 3.6-5.5 Chloride 103 mEq/L 94-112 Carbon Dioxide 25 mEq/L 21-32 Glucose 109 mg/dL High 70-105 16 BUN 22 mg/dL 6-26 Creatinine 0.9 mg/dL [...] >=60 GFR >60 ml/min/1.73m^ >=60 Laboratory test 10/26/2015 [facility] Hemoglobin A1c 6.0 % High 4.1- 5.7 finding (607)- - (Fma) Laboratory test 07/10/2015 [facility] Hemoglobin A1c 6.1 % High 4.1- 5.7 finding (607)- - (a) Ua - Micro (Fma) 07/10/2015 [facility] Appearance clear (607)- - Color yellow Glucose, Urine (Fma/CMC/CTX) neg Bilirubin neg Ketones neg SP Grav 1.010 Blood trace-intact # PH 6.5 Protein neg Urobil 6.5 Nitrite neg Leukocytes (Fma/CMC/[facility]) neg Hyaline - /Lpf Granular - /Lpf WBC (Fma,[facility]) 0-1 # RBC 0-1 # Mucus - /Lpf Epith occ /Lpf # Bacteria trace /Hpf # Amorphous - /Lpf Crystals, Fluid (Fma/CMC/CTX) - Z#Comments - Urine Culture 07/10/2015 [facility] Urine Culture, Final report 17, 18 Routine [address] [facility] [place] [address] (607)- - Result 1 No growth 19 Lipid Profile 03/25/2015 [facility](fma) Cholesterol 181 mg/dL 120- 200 Triglycerides 200 mg/dL 30-200 HDL Cholesterol 48 mg/dL 30-85 LDL (Calculated) 93 CALC 0-129 VLDL Cholesterol 40 mg/dL 0-50 HDL Risk Factor 3.8 CALC 0.0-4.4 Comprehensive Metabolic 03/25/2015 [facility]) Sodium 138 mEq/L 134-149 Prof Potassium 4.7 mEq/L 3.6-5.5 Chloride 97 mEq/L 94-112 Carbon Dioxide 28 mEq/L 21-32 Glucose 129 mg/dL High 70-105 20 BUN 17 mg/dL 6-26 Creatinine 1.0 mg/dL [...] >60 ml/min/1.73m^ >=60 Laboratory test finding 03/25/2015 [facility]) TSH 1.31 mIU/L 0.50-6.00 Free T4 1.26 ng/dL 0.75-1.54 Complete Blood Count 03/25/2015 [facility]) WBC 5.6 x10^3/UL 3.6 -9.6 RBC 4.47 x10^6/UL 3.90-5.70 HGB 13.8 g/dL 12.1-17.2 HCT 40 % 36-50 MCV 90.0 fL 82.2-97.4 MCH 30.8 pg 27.6-33.3 MCHC 34.2 g/dL 33.0-35.5 RDW 13.4 % 11.6-13.7 PLT 198 x10^3/UL 150-400 MPV 6.3 fL Low 7.4-10.4 Gran # 3.3 x10^3/UL 1.5-7.2 Lymph# 2.0 x10^3/UL 0.7-4.9 [place]# 0.3 x10^3/UL 0.1-0.9 Gran % 58.3 % 42.2-75.2 Lymph % 35.8 % 20.5-51.1 [place]% 5.9 % 1.7-9.3 Laboratory test 03/25/2015 [facility] Hemoglobin A1c 6.1 % High 4.1- 5.7 finding (607)- - (Fma/CMC,CX) Ua - Non Micro 12/04/2014 [facility] Appearance CLEAR (a) (607)- - Color YELLOW Glucose, Urine ([facility]/CMC/CTX) NEG Bilirubin NEG Ketones NEG SP Grav 1.015 Blood NEG PH 5.5 Protein NEG Urobil 0.2 Nitrite NEG Leukocytes (a/[facility]) NEG Ua - Non Micro (Fma) 11/28/2014 [facility] Appearance CLEAR (607)- - Color YELLOW Glucose, Urine (Fma/CMC/CTX) NEG Bilirubin NEG Ketones NEG SP Grav 1.020 Blood NEG PH 5.5 Protein NEG Urobil 0.2 Nitrite NEG Leukocytes (a/CMC/[facility]) TRACE No Micro Per SA. Laboratory test 08/06/2014 [facility] Rheumatoid Arth 9.1 IU/mL 0.0-13.9 finding [address] [place] [address] [phone] Laboratory test 08/06/2014 [facility] Sed Rate 13 mm finding (607)- - (Fma/CMC/[employer] [place] x) Comprehensive 08/06/2014 [facility]) Sodium 140 mEq/L 134-149 Metabolic Prof Potassium 4.2 mEq/L 3.6-5.5 Chloride 102 mEq/L 94-112 Carbon Dioxide 28 mEq/L 21-32 Glucose 111 mg/dL High 70-105 21 BUN 21 mg/dL 6-26 Creatinine 0.9 mg/dL 0.6-1.4 BUN/Creat Ratio 23.3 CALC 8.0-36.0 Calcium 9.2 mg/dL 8.6-10.2 Total Protein 7.2 g/dL 6.4-8.3 Albumin 4.1 g/dL 3.8-5.5 Globulin 3.1 g/dL 2.0-4.8 A/G Ratio 1.3 CALC 0.6-2.3 Alk. Phosphatase 81 U/L 30-110 Alt (SGPT) 29 U/L 7-35 Ast (Sgot) 22 U/L 5-34 Total Bilirubin 0.3 mg/dL 0.2-1.3 Laboratory test 08/06/2014 [facility](a) Uric Acid 6.2 mg/dL 2.5- 9.2 finding Laboratory test 04/08/2014 [facility] Hemoglobin A1c 5.3 % 4.1-5.7 finding (607)- - (Fma/CMC,CX) Lipid Profile 04/04/2014 [facility](a) Cholesterol 173 mg/dL 120- 200 Triglycerides 129 mg/dL 30-200 HDL Cholesterol 52 mg/dL 30-85 LDL (Calculated) 95 CALC 0-129 VLDL Cholesterol 26 mg/dL 0-50 HDL Risk Factor 3.3 CALC 0.0-4.4 Comprehensive Metabolic 04/04/2014 [facility](a) Sodium 136 mEq/L 134-149 Prof Potassium 4.5 mEq/L 3.6-5.5 Chloride 99 mEq/L 94-112 Carbon Dioxide 29 mEq/L 21-32 Glucose 131 mg/dL High 70-105 22 BUN 19 mg/dL 6-26 Creatinine 1.0 mg/dL 0.6-1.4 BUN/Creat Ratio 19.0 CALC 8.0-36.0 Calcium 10.1 mg/dL 8.6-10.2 Total Protein 7.4 g/dL 6.4-8.3 Albumin 4.7 g/dL 3.8-5.5 Globulin 2.7 g/dL 2.0-4.8 A/G Ratio 1.7 CALC 0.6-2.3 Alk. Phosphatase 91 U/L 30-110 Alt (SGPT) 22 U/L 7-35 Ast (Sgot) 22 U/L 5-34 Total Bilirubin 0.5 mg/dL 0.2-1.3 Laboratory test finding 04/04/2014 [facility](a) TSH 1.06 mIU/L 0.50-6.00 Free T4 1.28 ng/dL 0.75-1.54 1 SEE RESULT BELOW Name: INGRIS SHEEHAN : [address]: Lorraine Peck NP Acct: [id number] Unit: [id number] AGE: 58 Location: [facility] Re05/30/18 SEX: F Status: REG REF SPEC: [id number] SARAH: 05/30/181309 [facility] DR: Lorraine Peck NP REQ: [id number] RECD: 05/30/18 STATUS: COMP _ SOURCE: URINE SPDESC: ORDERED: Urine Culture COMMENTS: [id number] Urine Source: Random Procedure Result Reported Site Urine Culture Final 05/31/18- 1602 ML No growth of clinically significant organisms * ML - Main Lab . END OF REPORT DEPARTMENT OF PATHOLOGY, [address] [place] [address] Juan Evans M.D. Director [facility] # [id number] 2 Because ethnic data is not always [...] 5 Kidney failure <15 (or dialysis) 3 Test Performed by: [facility] [address] [place] [address] 4 RESULTS VERIFIED BY REPEAT ANALYSIS 5 consistent w/ previous results 6 consistent w/ previous results 7 RESULT: 100% Calcium oxalate monohydrate ADDITIONAL INFORMATION This test was developed and its performance characteristics determined by [facility] in a manner consistent with CLIA requirements. This test has not been cleared or approved by the U.S. Food and Drug Administration. Test Performed by: [facility] [address] [place] [address] 8 SEE RESULT BELOW Name: INGRIS SHEEHAN : [address]: Holly Castrejon NP Acct: [id number] Unit: [id number] AGE: 57 Location: [facility] Re12/27/17 SEX: F Status: REG REF SPEC: [id number] SARAH: 12/27/[address]: Holly Castrejon NP REQ: [id number] RECD: 12/27/17 STATUS: SOUT _ ORDERED: LEVEL 1 COMMENTS: [id number] FINAL DIAGNOSIS Kidney, lithotomy: Calculus (gross diagnosis) [...] by and Reported on: Juan Evans MD 1407 END OF REPORT DEPARTMENT OF PATHOLOGY, [address] [place] [address] Juan Evans M.D. Director [facility] # [id number] Real Estate Transaction Coordinator: [id number] 10 Because ethnic data is not always readily [...] 15-29 5 Kidney failure <15 (or dialysis) 11 consistent w/ previous results 12 consistent w/ previous results 13 RESULTS VERIFIED BY REPEAT ANALYSIS 14 1 temp urine cup 15 TOXASSURE SELECT 13 (MW) Test Result Flag Units NO DRUGS DETECTED. Test Result Flag Units Ref Range Creatinine 56 mg/dL >=20 Declared Medications: Medication list was not provided. For clinical consultation, please call . 16 NON-FASTING 17 SRC:urine 1 nava top urine tube 18 Source of Specimen: urine 1 nava top urine 19 Source of Specimen: urine 1 nava top urine 20 RESULTS VERIFIED BY REPEAT ANALYSIS 21 consistent w/ previous results 22 RESULTS VERIFIED BY REPEAT ANALYSIS Procedures Date Code Description Status 07/26/2018 08212 Finger Or Heel Stick Completed 04/26/2018 38148 Finger Or Heel Stick Completed 03/20/2018 20341 Pulse Oximetry Completed 01/29/2018 [id number] Colonoscopy Completed 01/17/2018 76021 Nebulizer Treatment Completed 12/30/2017 61833 Pulse Oximetry Completed 10/05/2017 18584 Finger Or Heel Stick Completed 09/08/2017 [id number] Mammogram Completed 08/03/2016 [id number] Mammogram Completed 04/11/2016 93135 Finger Or Heel Stick Completed 01/13/2016 49473 Finger Or Heel Stick Completed 12/10/2014 [id number] Mammogram Completed 04/08/2014 74155 Finger Or Heel Stick Completed Encounters Type Date Location Provider Dx Diagnosis Office Visit 09/20/2018 [facility] Lorraine J06.9 Acute upper 9:30a Liv, MANAGER BUSINESS INFORMATION respiratory infection, unspecified I10 Essential (primary) hypertension L60.8 Other nail disorders Z63.79 Other stressful life events affecting family and household Z59.6 Low income Office Visit 09/14/2018 3:30p [facility] Holly Capellan J06.9 Acute upper Cash, [employer] respiratory infection, unspecified Office Visit 08/08/2018 8:45a [facility] Chinyere Oliva, M54.2 Cervicalgia PA L23.89 Allergic contact dermatitis due to other agents H69.93 Unspecified Eustachian tube disorder, bilateral I10 Essential (primary) hypertension Office Visit 07/31/2018 3:15p [facility] Chinyere Stanton J45.20 Mild intermittent [place], [place] asthma, uncomplicated J30.9 Allergic rhinitis, unspecified I10 Essential (primary) hypertension Office Visit 07/26/2018 4:15p [facility] Lynda Mancuso J30.9 Allergic rhinitis, MANAGER [employer] INFORMATION unspecified E11.9 Type 2 diabetes mellitus without complications Office Visit 05/30/2018 11:15a [facility] Lorraine R35.0 Frequency of Liv, MANAGER BUSINESS INFORMATION micturition Office Visit 04/26/2018 12:00p Main Office Sandhya Dumont, E03.9 Hypothyroidism, M.D. unspecified E11.9 Type 2 diabetes mellitus without complications J30.9 Allergic rhinitis, unspecified J45.20 Mild intermittent asthma, uncomplicated E66.9 Obesity, unspecified Office Visit 03/20/2018 10:45a Main Office Lorraine J30.9 Allergic rhinitis, Liv, MANAGER [employer] INFORMATION unspecified J31.2 Chronic pharyngitis R05 Cough L50.9 Urticaria, unspecified Z63.79 Other stressful life events affecting family and household Office Visit 02/28/2018 [facility] Lorraine E03.9 Hypothyroidism, 9:00a Office Liv, MANAGER [employer] INFORMATION unspecified L60.8 Other nail disorders R73.01 Impaired fasting glucose Office Visit 01/17/2018 9:30a [facility] Lorraine J20.9 Acute bronchitis, Liv, MANAGER [employer] INFORMATION unspecified R05 Cough R73.01 Impaired fasting glucose I10 Essential (primary) hypertension E78.2 Mixed hyperlipidemia Z00.00 Encntr for general adult medical exam w/o abnormal findings Z23 Encounter for immunization Office Visit 12/30/2017 11:50a Main Office Jarad Cason J20.9 Acute bronchitisRosina M.D. unspecified Office Visit 12/27/2017 2:15p [facility] Holly Capellan M54.2 Cervicalgia ALINA Castrejon M25.511 Pain in right shoulder N20.0 Calculus of kidney Office Visit 10/05/2017 9:00a [facility] Lorraine J30.9 Allergic Liv, MANAGER BUSINESS INFORMATION rhinitis, unspecified H68.001 Unspecified Eustachian salpingitis, right ear R73.01 Impaired fasting glucose Office Visit 08/23/2017 11:30a [facility] Lorraine L29.8 Other pruritus Liv, MANAGER [employer] INFORMATION Office Visit 06/30/2017 10:00a [facility] Lorraine J06.9 Acute upper Ilv, MANAGER BUSINESS INFORMATION respiratory infection, unspecified I10 Essential (primary) hypertension R73.01 Impaired fasting glucose L20.9 Atopic dermatitis, unspecified Office Visit 06/12/2017 [facility] Alber Manley J06.9 Acute upper 3:50p Office MD Melita respiratory infection, unspecified Office Visit 05/02/2017 [facility] Lauren Daugherty, N20.2 Calculus of kidney 2:00p Office Afnp-C with calculus of ureter Office Visit 01/12/2017 [facility] CHELSI Fry Z00.00 Encntr for general 10:00a Office adult medical exam w/o abnormal findings Office Visit 12/06/2016 [facility] Marj Mckeon N20.0 Calculus of kidney 10:20a Office Nany Turner Office Visit 08/31/2016 [facility] Sandhya Dumont, R19.7 Diarrhea, 11:20a Office M.D. unspecified Office Visit 07/08/2016 [facility] Sandhya Dumont, I10 Essential 10:30a Office M.D. (primary) hypertension R73.01 Impaired fasting glucose E03.8 Other specified hypothyroidism Office Visit 03/09/2016 10:00a [facility] Lorraine R73.01 Impaired Liv, MANAGER [employer] INFORMATION fasting glucose I10 Essential (primary) hypertension F43.0 Acute stress reaction F34.1 Dysthymic disorder Z23 Encounter for immunization Office Visit 01/13/2016 1:30p [facility] Lorraine R73.09 Other abnormal Liv, MANAGER [employer] INFORMATION glucose I10 Essential (primary) hypertension M25.561 Pain in right knee N23 Unspecified renal colic F43.0 Acute stress reaction F34.1 Dysthymic disorder Office Visit 09/02/2015 1:00p [facility] Lorraine R73.09 Other abnormal Liv, MANAGER BUSINESS INFORMATION glucose Office Visit 07/10/2015 11:30a [facility] Lorraine R73.09 Other abnormal Liv, MANAGER [employer] INFORMATION glucose N23 Unspecified renal colic M25.552 Pain in left hip Office Visit 12/04/2014 10:00a 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 Alexandra Rock NP 788.0 Colic Renal Office Visit 10/06/2014 10:00a [facility] Lorraine 719.46 Pain Joint Liv, MANAGER BUSINESS INFORMATION Lower Leg Office Visit 08/12/2014 1:00p [facility] Lauren Daugherty, 729.5 Pain In Limb Afnp-C Office Visit 08/06/2014 3:45p [facility] Lorraine 719.46 Pain Joint Liv, MANAGER BUSINESS INFORMATION Lower Leg 790.6 Abnormal Blood Chemistry Other Office Visit 07/25/2014 3:20p [facility] Jamal Goodrich, 465.9 URI Upper M.D. Respiratory Infections Acute Unspec Sites 719.46 Pain Joint Lower Leg Office Visit 07/03/2014 1:30p [facility] Alexandra Rock, 729.5 Pain In Limb [employer] Office Visit 05/14/2014 10:50a [facility] Sandhya Dumont, 692.9 Eczema NOS, Contact M.D. Dermatitis NOS Office Visit 04/02/2014 10:30a [facility] Sandhya Dumont, 244.9 Hypothyroidism Other M.D. Unspec 272.4 Hyperlipidemia Other Unspec 401.1 Hypertension Benign 530.81 Esophageal Reflux 493.90 Asthma Unspec W/O Status Asthmaticus 296.30 Depressive Disorder Major Recurrent Unspec 682.9 Cellulitis & Abscess Unspec Site Plan of Treatment Future Appointment(s):02/05/2019 8:00 am - Sandhya Dumont M.D. at [facility] [id number]/02/2018 - Sandhya Dumont M.D.I10 Essential (primary) hypertensionNew Labs:Comp Metabolic-ALL Lab [facility], Ordered: 10/02/18Lipid Panel-ALL [facility], Ordered: 10/02/18CBC Electronic-ALL Lab [facility], Ordered: 10/02/18Ua - Micro If Indicated ([facility], Ordered: 10/02/18Free T4 (Fma/[facility]), Ordered: TSH (Fma/CMC/[facility]), Ordered: 10/02/18Comments:The patient will continue to monitor blood pressure and let me know the blood pressure results if there are readings persistently above 140/90. Goal blood pressure is less than 130/80. Recommend low salt/cardiac diet such as the Mediterranean diet and routine exercise at least 30 minutes a day.Follow up:4-5 mo Physical fasting labs yjzroJ96.9 Type 2 diabetes mellitus without complicationsNew Labs: Hemoglobin A1c (Fma), Ordered: 10/02/18Microalb, Random (Fma/CMC/CTX), Ordered: 10/02/18Comments:Recommend yearly diabetic eye and foot exams, and check on blood pressure periodically. Goal blood sugar is less than 140 in the morning or A1c less than 7. Recommend monitoring portion size, decreased carbohydrate intake (breads, pasta, rice, candy, desserts, and sweetened beverages/alcohol) and routine daily exercise.Z12.31 Encounter for screening mammogram for malignant neoplasm of breastNew Xrays:Mammography Screening, Bilateral; 2-View Each Breast, Ordered: 10/02/18Comments:refer for [id number] Other hypertrophic disorders of the skinComments:Discussed monitoring, reasons for removal including bleeding, enlargement, itchiness or discomfort/pain; refer derm for skin checkAllComments:Medication Management Patient Understands medications she's taking? Yes No Are there Barriers to Adherence? Yes No Has the patient been asked about herbal supplements and therapies, and OTC meds? Yes No
[2018-10-27 18:08] VITALS: BP 141/82
--- NOTE | 2018-10-27 18:29 | UC ---
Throat Pain/Nasal Raymond HPI - HPI Summary HPI Summary: 58 yo female has been spending a lot of time pool side the past three days dry mouth no pain worried that roof of mouth looks pale - History of Current Complaint Chief Complaint: UCDentalProblem Stated Complaint: UPPER MOUTH SORES Time Seen by Provider: 10/27/18 18:15 Hx Obtained From: Patient Hx Last Menstrual Period: hysterectomy ?: Yes Onset/Duration: Sudden Onset, Gradual Onset, Lasting Minutes Pain Intensity: 0 Pain Scale Used: 0-10 Numeric Associated Signs & Symptoms: Positive: Negative - Allergies/Home Medications Allergies/Adverse Reactions: Allergies Allergy/AdvReac Type Severity Reaction Status Date / Time IVP dye Allergy Severe Dizziness Uncoded 09/12/18 08:09 ? "pill", unknown name Allergy Unknown Nausea Uncoded 10/27/18 18:01 PMH/Surg Hx/FS Hx/Imm Hx Endocrine History: Diabetes, Dyslipidemia Respiratory History: Asthma - Surgical History Surgical History: Yes Surgery Procedure, Year, and Place: cholecystectomy, hysterectomy, ,. STENT PLACEMENT FOR KIDNEY STONES - Family History Known Family History: Positive: Hypertension, Diabetes - Social History Alcohol Use: Rare Substance Use Type: None Smoking Status (MU): Never Smoked Tobacco - Immunization History Most Recent Tetanus Shot: 2017 Vaccination Up to Date: Yes Review of Systems All Other Systems Reviewed And Are Negative: Yes Constitutional: Positive: Negative Skin: Positive: Negative Eyes: Positive: Negative ENT: Positive: Negative Respiratory: Positive: Negative Cardiovascular: Positive: Negative Gastrointestinal: Positive: Negative Genitourinary: Positive: Negative Motor: Positive: Negative Neurovascular: Positive: Negative Musculoskeletal: Positive: Negative Neurological: Positive: Negative Psychological: Positive: Negative Physical Exam Triage Information Reviewed: Yes Appearance: Well-Appearing, No Pain Distress, Well-Nourished Vital Signs: Initial Vital Signs Temp 98.2 F 10/27/18 18:02 Pulse 80 10/27/18 18:02 Resp 18 10/27/18 18:02 BP 141/82 10/27/18 18:02 Pulse Ox 98 10/27/18 18:02 Eyes: Positive: Conjunctiva Clear ENT: Positive: Hearing grossly normal, Pharynx normal, TMs normal, Other - no thrush. Negative: Nasal congestion, Nasal drainage, Tonsillar swelling, Tonsillar exudate, Trismus, Muffled voice, Hoarse voice, Dental tenderness Dental Exam: Normal Neck: Positive: Supple, Nontender, No Lymphadenopathy Respiratory: Positive: Lungs clear, Normal breath sounds, No respiratory distress, No accessory muscle use Cardiovascular: Positive: RRR, No Murmur Musculoskeletal: Positive: No Edema Neurological: Positive: Alert Psychological Exam: Normal Skin Exam: Normal Throat Pain/Nasal Course/Dx - Differential Dx/Diagnosis Provider Diagnosis: Dry mouth, unspecified, Elevated BP without diagnosis of hypertension Discharge - Sign-Out/Discharge Documenting (check all that apply): Patient Departure All imaging exams completed and their final reports reviewed: No Studies - Discharge Plan Condition: Stable Disposition: HOME Patient Education Materials: Dry Mouth (ED) Referrals: Sandhya Dumont MD [Primary Care Provider] - 3 Days (if not better) Additional Instructions: you may be a little on the dehydrated side fluids recheck this week if not better - Billing Disposition and Condition Condition: STABLE Disposition: Home
== END 2018-10-27 18:33 | disposition home or self-care (01) ==
LOC: UCCORT 17:38
DX: R68.2 Dry mouth, unspecified (principal); R03.0 Elevated blood-pressure reading, without diagnosis of hypertension
CPT/HCPCS: 99211; G0463

== ENCOUNTER 2018-11-03 13:59 | Emergency (ER) | payer OTHER ==
--- NOTE | 2018-11-03 14:44 | ED ---
GI/ HPI - HPI Summary HPI Summary: This pt is a 58 y/o female presenting to [facility] referred from [facility] for intermittent right flank and right lower abd pain for the past couple of days. Pt reports she has had many kidney stones since she was 18 y/o. She states she has pressure pain on her right lower abd area and on her right flank. Pt notes this pain feels like her past kidney stones. Additionally reports she sometimes gets bloated when she has a kidney stone. Denies problems urinating. Denies fever, chills, nausea, vomiting. Her pain is alleviated with ambulation. Pt was seen at Urgent Care today but was sent to the ED as they don't have CT today. - History of Current Complaint Chief Complaint: EDFlankPain Time Seen by Provider: 11/03/18 14:34 Stated Complaint: KIDNEY STONES PER PT Hx Obtained From: Patient Hx Last Menstrual Period: hysterectomy Onset/Duration: Started Days Ago - 3, Still Present Timing: Lasting Days Current Severity: Moderate Pain Intensity: 5 Location of Pain: Other - right lower abd Pain Characteristics: Pressure Associated Signs and Symptoms: Positive: Flank Pain - right. Negative: Nausea, Vomiting, Fever, Chills Aggravating Factor(s): Nothing Alleviating Factor(s): Movement - ambulation - Allergy/Home Medications Allergies/Adverse Reactions: Allergies Allergy/AdvReac Type Severity Reaction Status Date / Time IVP dye Allergy Severe Dizziness Uncoded 11/03/18 14:37 ? "pill", unknown name Allergy Unknown Nausea Uncoded 11/03/18 14:04 PMH/Surg Hx/FS Hx/Imm Hx Endocrine/Hematology History: Reports: Hx Diabetes, Hx Thyroid Disease Cardiovascular History: Reports: Hx Hypercholesterolemia, Hx Hypertension Respiratory History: Denies: Hx Asthma, Hx Chronic Obstructive Pulmonary Disease (COPD) GI History: Reports: Hx Gastroesophageal Reflux Disease Denies: Hx Ulcer History: Reports: Hx Kidney Stones - since 18 y/o - Cancer History Hx Chemotherapy: No Hx Radiation Therapy: No - Surgical History Surgery Procedure, Year, and Place: cholecystectomy, hysterectomy, ,. STENT PLACEMENT FOR KIDNEY STONES Infectious Disease History: No Infectious Disease History: Denies: Hx Clostridium Difficile, Hx Hepatitis, Hx Human Immunodeficiency Virus (HIV), Hx of Known/Suspected MRSA, Hx Shingles, Hx Tuberculosis, Hx Known/ Suspected VRE, Hx Known/Suspected VRSA, History Other Infectious Disease, Traveled Outside the [place] in Last 30 Days - Family History Known Family History: Positive: Hypertension, Diabetes - Social History Alcohol Use: None Hx Substance Use: No Substance Use Type: Reports: None Hx Tobacco Use: No Smoking Status (MU): Never Smoked Tobacco Review of Systems Negative: Fever, Chills Cardiovascular: Negative Respiratory: Negative Positive: Abdominal Pain - right lower. Negative: Vomiting, Nausea Positive: flank pain - right Musculoskeletal: Negative All Other Systems Reviewed And Are Negative: Yes Physical Exam - Summary Physical Exam Summary: Appearance: The patient is well-nourished in no acute distress and in no acute pain. Skin: The skin is warm and dry and skin color reflects adequate perfusion. HEENT: The head is normocephalic and atraumatic. The pupils are equal and reactive. The conjunctivae are clear and without drainage. Nares are patent and without drainage. Mouth reveals moist mucous membranes and the throat is without erythema and exudate. The external ears are intact. The ear canals are patent and without drainage. The tympanic membranes are intact. Neck: the neck is supple with full range of motion and non-tender. There are no carotid bruits. There is no neck vein distension. Respiratory: Chest is non-tender. Lungs are clear to auscultation and breath sounds are symmetrical and equal. Cardiovascular: Heart is regular rate and rhythm. There is no murmur or rub auscultated. Abdomen: The abdomen is soft and non-tender. There are normal bowel sounds heard in all four quadrants and there is no organomegaly palpated. Musculoskeletal: There is no back tenderness noted. Extremities are non-tender with full range of motion. Neurological: Patient is alert and oriented to person, place and time. The patient has symmetrical motor strength in all four extremities. Psychiatric: The patient has an appropriate affect and does not exhibit any anxiety or depression. Triage Information Reviewed: Yes Vital Signs On Initial Exam: Initial Vitals Temp Pulse Resp BP Pulse Ox 98.6 F 91 18 175/103 97 11/03/18 14:00 11/03/18 14:00 11/03/18 14:00 11/03/18 14:11/03/18 14:00 Vital Signs Reviewed: Yes Diagnostics - Vital Signs Vital Signs Temp Pulse Resp BP Pulse Ox 11/03/18 14:00 98.6 F 91 18 175/103 97 - Laboratory Result Diagrams: 11/03/18 14:34 11/03/18 14:34 Lab Statement: Any lab studies that have been ordered have been reviewed, and results considered in the medical decision making process. - CT Abdomen/Pelvis CT CT Interpretation Completed By: Radiologist Summary of CT Findings: IMPRESSION: 1. Bilateral collecting system renal calculi that do not appear to cause acute obstruction or inflammation. 2. CT findings are consistent with sigmoid diverticulitis. 3. There are additional chronic, degenerative and iatrogenic findings described in the body of the report. Dr. Hernandez has reviewed this report. Re-Evaluation - Re-Evaluation First Eval Re-Evaluation Time: 17:15 Comment: Reviewed lab and CT results with pt. GIGU Course/Dx - Course Course Of Treatment: Ms. Lafleur presented complaining of right flank pain. She has a history of stones and urinary tract infections. IV was initiated and she was given pain medication while labs and CT were obtained. CT revealed diverticulitis and I will treat her with Cipro and Flagyl and [place]. She was nontoxic in appearance and her vitals are stable and remained so during her evaluation. - Diagnoses Provider Diagnoses: Diverticulitis Discharge - Sign-Out/Discharge Documenting (check all that apply): Patient Departure - Discharge home Patient Received Moderate/Deep Sedation with Procedure: No - Discharge Plan Condition: Stable Disposition: HOME Prescriptions: Ciprofloxacin TAB* [Cipro Tab*] 500 mg PO BID #20 tab metroNIDAZOLE [Flagyl 500 MG TAB] 500 mg PO TID #30 tab traMADol TAB* [Ultram*] 50 mg PO Q6HR PRN #20 tab MDD 4 PRN Reason: Pain Patient Education Materials: Diverticulitis (ED) Referrals: Sandhya Dumont MD [Primary Care Provider] - Additional Instructions: Follow up with your primary care provider in 2-3 days. RETURN TO THE ED FOR ANY WORSENING OR NEW SYMPTOMS. - Billing Disposition and Condition Condition: STABLE Disposition: Home - Attestation Statements Document Initiated by Scribe: Yes Documenting Scribe: Leidy Gupta Provider For Whom Scribe is Documenting (Include Credential): Scottie Hernandez MD Scribe Attestation: Leidy Atkinson, scribed for Scottie Hernandez MD on 11/04/18 at 1008. Scribe Documentation Reviewed: Yes Provider Attestation: The documentation as recorded by the scribe, Leidy Gupta accurately reflects the service I personally performed and the decisions made by me, Scottie Hernandez MD Status of Scribe Document: Viewed
[2018-11-03 15:03] LABS: ABS Eosinophils 0.2 10^3/ul (0-0.6); ABS Monocytes 0.8 10^3/ul (0-0.8); ABS Neutrophils 6.2 10^3/ul (1.5-7.7); Eosinophil % 2.2 %; Hematocrit 39 % (35-47); Hemoglobin 13.7 g/dL (12.0-16.0); Lymphocyte % 21.3 %; Mean Corpuscular HGB Conc 35 g/dL (31-36); Mean Corpuscular Hemoglobin 32 pg (27-31); Mean Corpuscular Volume 91 fL (80-97); Mean Platelet Volume 7.4 fL (7.4-10.4); Nucleated Red Blood Cells % 0.1; Platelet Count 177 10^3/uL (150-450); Red Blood Count 4.34 10^6 /uL (3.70-4.87); Red Cell Distribution Width 13 % (10-15); White Blood Count 9.3 10^3/uL (3.5-10.8)
[2018-11-03 15:13] LABS: Albumin 4.5 g/dL (3.2-5.2); Albumin/Globulin Ratio 1.3 (1-3); BUN/Creatinine Ratio 12.8 (8-20); C Reactive Protein 39.88 mg/L (<8.01); EGFR Non-African American 61.2 (>60); Globulin 3.5 g/dL (2-4)
[2018-11-03 15:18] LABS: HCG Pregnancy 8.01 mIU/mL
[2018-11-03 15:30] LABS: Urine Appearance Clear; Urine Bilirubin Negative (Negative); Urine Blood Negative (Negative); Urine Color Yellow; Urine Glucose Negative (Negative); Urine Ketones Negative (Negative); Urine Nitrite Negative (Negative); Urine Protein Negative (Negative); Urine Specific Gravity 1.012 (1.010-1.030); Urine Urobilinogen Negative (Negative)
[2018-11-03 17:48] VITALS: BP 135/67
== END 2018-11-03 17:46 | disposition home or self-care (01) ==
LOC: ED 13:59
DX: K57.92 Diverticulitis of intestine, part unspecified, without perforation or abscess without bleeding (principal); Z91.041 Radiographic dye allergy status; E11.9 Type 2 diabetes mellitus without complications; I10 Essential (primary) hypertension; E78.00 Pure hypercholesterolemia, unspecified; E07.9 Disorder of thyroid, unspecified; N20.0 Calculus of kidney
CPT/HCPCS: 36415; 74176; 80053; 81003; 83690; 84702; 85025; 86140; 99283